=== PATIENT | male | born 1950 | race Caucasian/White ===

== ENCOUNTER 2020-06-24 07:56 | Outpatient (REF) | payer MEDICARE, SELFPAY ==
--- NOTE | ~2020-06-24 | XR_ITS ---
EXAMINATION: XR SHOULDER, LEFT CLINICAL INFORMATION: S46.912A - Strain of unspecified muscle, fascia and tendon COMPARISON: None TECHNIQUE: Left shoulder is imaged in 4 views. FINDINGS: There is no fracture, dislocation, destructive process. The acromioclavicular alignment is normal. There is small spur superior aspect greater tuberosity perhaps with punctate calcification distal rotator cuff. There is some punctate mineralization at the inferior glenoid rim. Mild spurring is present inferolateral acromium and distal inferior clavicle. There are degenerative changes acromioclavicular joint. No destructive process. XR/XR shoulder LT min 2V IMPRESSION: 1. No fracture or dislocation. Acromioclavicular alignment normal. 2. Degenerative changes acromioclavicular joint.
[2020-06-24 08:42] LABS: Hematocrit 43.2 % (42-52); Hemoglobin 14.3 g/dl (14.0-18.0); Mean Corpuscular HGB Conc 33.1 g/dl (31.0-36.0); Mean Corpuscular Hemoglobin 31.7 pg (27.0-33.0); Mean Corpuscular Volume 95.8 fL (80-98); Mean Platelet Volume 9.1 fL (9.4-12.4); Platelet Count 219 X10*3/uL (160-400); Red Blood Count 4.51 X10*6/uL (4.60-5.80); Red Cell Distribution Width 12.6 % (11.0-16.0); White Blood Count 6.1 X10*3/uL (4.8-10.8)
[2020-06-24 08:53] LABS: Glucose Urine UA NEG (NEG); Leukocyte Esterase Urine NEG (NEG); Nitrite Urine NEG (NEG); PH 7.5 (5.0-8.0); Specific Gravity - Urine 1.015 (1.005-1.025); Urine Blood NEG (NEG); Urine Ketones NEG (NEG); Urine Protein NEG (NEG-TRACE)
[2020-06-24 08:56] LABS: Appearance Urine CLEAR; Color Urine YELLOW
[2020-06-24 09:08] LABS: Alanine Aminotransferase 23 U/L (0-40); Albumin Level 4.2 g/dL (3.5-5.0); Alkaline Phosphatase 66 U/L (39-117); Aspartate Amino Transferase 28 U/L (5-37); Bilirubin Direct 0.2 mg/dL (0.0-0.5); Bilirubin Total 0.5 mg/dL (0.0-1.0); Blood Urea Nitrogen 16 mg/dL (9-16); Calcium 9.2 mg/dL (8.4-10.2); Cholesterol 186 mg/dL; Estimated Glomerular Filt Rate > 60; Glucose Random 97 mg/dL (60-115); HDL Cholesterol 93 mg/dL; LDL Cholesterol Calculated 84 mg/dl; Total Protein 6.8 g/dL (6.5-8.0); Triglycerides 48 mg/dL
[2020-06-24 09:16] LABS: Anion Gap 11 (12-20); Carbon Dioxide 29 mmol/L (22-29); Chloride 100 mmol/L (96-108); Potassium 3.7 mmol/L (3.3-5.1); Sodium 136 mmol/L (135-145)
== END 2020-06-24 07:57 | disposition home or self-care (01) ==
LOC: HO.LAB 07:56
PROVIDERS: PCP Internal Medicine; Visit Provider Internal Medicine
DX: S46.912A Strain of unspecified muscle, fascia and tendon at shoulder and upper arm level, left arm, initial encounter (principal); E78.00 Pure hypercholesterolemia, unspecified; X58.XXXA Exposure to other specified factors, initial encounter; Y93.9 Activity, unspecified; Y92.9 Unspecified place or not applicable; Y99.9 Unspecified external cause status
CPT/HCPCS: 36415; 73030; 80048; 80061; 80076; 81003; 85027

== ENCOUNTER 2021-04-01 11:03 | Outpatient (REF) | payer MEDICARE, SELFPAY ==
[2021-04-01 11:55] LABS: Hematocrit 41.9 % (42.0-52.0); Hemoglobin 13.9 g/dl (14.0-18.0); Mean Corpuscular HGB Conc 33.2 g/dl (31.0-36.0); Mean Corpuscular Hemoglobin 31.7 pg (27.0-33.0); Mean Corpuscular Volume 95.4 fL (80.0-98.0); Mean Platelet Volume 9.2 fL (9.4-12.4); Platelet Count 223 X10*3/uL (160-400); Red Blood Count 4.39 X10*6/uL (4.60-5.80); Red Cell Distribution Width 12.9 % (11.0-16.0); White Blood Count 6.5 X10*3/uL (4.8-10.8)
[2021-04-01 12:38] LABS: Thyroid Stimulating Hormone 1.22 uIU/mL (0.32-4.0)
[2021-04-01 12:46] LABS: Alanine Aminotransferase 19 U/L (0-40); Albumin Level 4.2 g/dL (3.5-5.0); Alkaline Phosphatase 61 U/L (39-117); Aspartate Amino Transferase 28 U/L (5-37); Bilirubin Direct 0.2 mg/dL (0.0-0.5); Bilirubin Total 0.5 mg/dL (0.0-1.0); C Reactive Protein 0.06 mg/dL (< or = 0.50); Cholesterol 195 mg/dL; HDL Cholesterol 85 mg/dL; LDL Cholesterol Calculated 90 mg/dl; Total Protein 6.9 g/dL (6.5-8.0); Triglycerides 103 mg/dL
[2021-04-01 12:49] LABS: Appearance Urine CLEAR; Color Urine YELLOW; Glucose Urine UA NEG (NEG); Leukocyte Esterase Urine NEG (NEG); Nitrite Urine NEG (NEG); Urine Blood NEG (NEG); Urine Ketones NEG (NEG); Urine Protein NEG (NEG-TRACE)
[2021-04-06 20:57] LABS: Vitamin D 25-OH, D2 <4 ng/mL; Vitamin D 25-OH, D3 13 ng/mL; Vitamin D 25-OH, Total 13 ng/mL (30-100)
== END 2021-04-01 11:04 | disposition home or self-care (01) ==
LOC: HO.LAB 11:03
PROVIDERS: PCP Internal Medicine; Visit Provider Internal Medicine
DX: E78.00 Pure hypercholesterolemia, unspecified (principal); S46.912A Strain of unspecified muscle, fascia and tendon at shoulder and upper arm level, left arm, initial encounter; X58.XXXA Exposure to other specified factors, initial encounter; Y93.9 Activity, unspecified; Y92.9 Unspecified place or not applicable; Y99.9 Unspecified external cause status
CPT/HCPCS: 36415; 80061; 80076; 81003; 82306; 84443; 85027; 86140

== ENCOUNTER 2021-04-29 10:49 | Outpatient (REF) | payer MEDICARE, SELFPAY ==
--- NOTE | ~2021-04-29 | XR_ITS ---
EXAMINATION: XR SHOULDER, RIGHT CLINICAL INFORMATION: Pain COMPARISON: Previous x-ray November 2016 TECHNIQUE: AP external rotation, Grashey, scapular Y, and axillary views of the right shoulder. FINDINGS: Bone alignment is normal. No acute fracture or dislocation is seen. There is arthritis at the acromioclavicular joint. There is a well-corticated soft tissue ossification superior to the distal clavicle that is unchanged. The glenohumeral joint is normal. Soft tissues are normal. XR/XR shoulder RT min 2V IMPRESSION: Arthritis at the acromioclavicular joint.
[2021-04-29 12:03] LABS: Rheumatoid Factor 35.7 IU/mL (<15.0)
[2021-05-03 09:31] LABS: Anti Nuclear Antibody Screen NEGATIVE (NEGATIVE)
== END 2021-04-29 10:50 | disposition home or self-care (01) ==
LOC: HO.LAB 10:49
PROVIDERS: PCP Internal Medicine; Visit Provider Nurse Practitioner Family
DX: R22.2 Localized swelling, mass and lump, trunk (principal); M25.50 Pain in unspecified joint; M25.511 Pain in right shoulder
CPT/HCPCS: 36415; 73030; 86038; 86039; 86431

== ENCOUNTER → 2021-07-04 08:09 | Outpatient (BNVA) | payer MEDICARE, SELFPAY | PROVIDERS: PCP Internal Medicine; Visit Provider Internal Medicine Rheumatology | DX: M19.041 Primary osteoarthritis, right hand (principal); M19.042 Primary osteoarthritis, left hand; M25.50 Pain in unspecified joint; R76.8 Other specified abnormal immunological findings in serum | CPT/HCPCS: 99202 ==

== ENCOUNTER 2021-07-12 09:53 | Outpatient (REF) | payer MEDICARE, SELFPAY ==
--- NOTE | ~2021-07-12 | XR_ITS ---
EXAMINATION: XR HAND, RIGHT CLINICAL INFORMATION: Primary osteoarthritis. COMPARISON: None TECHNIQUE: PA, lateral, and oblique views of the right hand. FINDINGS: Bony mineralization is normal. There is a neutral ulnar variance. There is mild osteoarthritic change of the interphalangeal joint of the thumb. There is minimal osteoarthritic change of the third distal interphalangeal joint. There is mild to moderate osteoarthritic change of the third through fifth proximal interphalangeal joints, most pronounced of the fifth, where there is apex lateral angulation. There are mild swan-neck deformities of the fingers. There is mild osteoarthritic change of the first through third metacarpophalangeal joints. There is severe osteoarthritic change of the first metacarpophalangeal joint. The proximal and distal carpal rows are intact. There are subchondral cystic degenerative changes of a few of the carpal bones. There is narrowing of the radiocarpal interval. No focal bone erosion is seen. There is no soft tissue gas or foreign body. XR/XR hand RT min 3V IMPRESSION: There are multi-focal osteoarthritic changes of the right hand and wrist. No focal bone erosion is seen. There is no fracture or dislocation noted. EXAMINATION: XR HAND, LEFT CLINICAL INFORMATION: Primary osteoarthritis. COMPARISON: None TECHNIQUE: PA, lateral, and oblique views of the left hand. FINDINGS: Bony mineralization is normal. There is a neutral ulnar variance. There is minimal osteoarthritic change of the second, third and fifth distal interphalangeal joints. There is mild osteoarthritic change of the fourth and fifth proximal interphalangeal joints. There is mild osteoarthritic change of the first, third and fourth metacarpophalangeal joints. There is marked osteoarthritic change of the first carpometacarpal joint. The proximal and distal carpal rows are intact. There is narrowing of the radiocarpal interval. No focal bone erosion is seen. There is no soft tissue gas or foreign body. IMPRESSION: As with the contralateral side, there are multi-focal osteolytic changes of the left hand and wrist. No focal bone erosion is seen. There is no fracture or dislocation.
--- NOTE | ~2021-07-12 | XR_ITS ---
EXAMINATION: XR FOOT, RIGHT CLINICAL INFORMATION: Pain. COMPARISON: None TECHNIQUE: AP, lateral, and oblique views of the right foot. FINDINGS: Bony alignment and mineralization are normal. No fracture, dislocation or right ankle joint effusion is seen. There is mild spurring of the dorsal aspect of the talonavicular joint. Boehler's angle is normal. There are small to moderate posterior and minimal plantar calcaneal spurs. There is moderate osteoarthritic change of the first metatarsophalangeal joint. There is mild bunion formation of the first metatarsal head. There is no abnormal bone erosion. No soft tissue gas or foreign body is seen. XR/XR foot LT min 3V IMPRESSION: 1. No fracture, dislocation or right joint effusion is seen. 2. There are calcaneal spurs, as detailed. 3. There is moderate osteoarthritic change of the right first metatarsophalangeal joint. 4. There is mild bunion formation of the right first metatarsal head. EXAMINATION: XR FOOT, LEFT CLINICAL INFORMATION: Pain. COMPARISON: None TECHNIQUE: AP, lateral, and oblique views of the left foot. FINDINGS: Bony alignment and mineralization are normal. No fracture, dislocation or left ankle joint effusion is seen. Boehler's angle is normal. There are small posterior and minimal plantar calcaneal spurs. There is mild spurring at the dorsal aspect of the talonavicular joint. There is marked osteoarthritic change of the first metatarsophalangeal joint. There is a moderate hallux valgus configuration. There is a large bunion seen at the medial aspect of the left first metatarsal head. No abnormal bone erosion is seen. There is no soft tissue gas or foreign body. IMPRESSION: 1. No fracture, dislocation or left ankle joint effusion is seen. 2. There are calcaneal spurs, as detailed. 3. There is marked osteoarthritic change of the left first metatarsophalangeal joint, with hallux valgus configuration. 4. There is a large bunion of the left first metatarsal head.
[2021-07-12 11:05] LABS: C Reactive Protein 0.07 mg/dL (< or = 0.50)
[2021-07-12 11:23] LABS: HBS Num1 0.94 mIU/mL (0-7.99); HBc Num1 0.04 S/CO (0.00-0.79); HBsAGNum1 0.22 S/CO (0.00-0.99); Hepatitis B Core Antibody Nonreactive (Nonreactive); Hepatitis B Surface Antigen Negative (Negative); ~HepC Num1 0.11 S/CO (0.00-0.79); ~Hepatitis B Surface Antibody NONREACTIVE (Nonreactive); ~Hepatitis C Antibody Nonreactive (Nonreactive)
[2021-07-12 11:26] LABS: Erythrocyte Sedimentation Rate 3 MM/HR (0-15)
[2021-07-13 09:27] LABS: ~Hepatitis A Antibody IgM Nonreactive (Nonreactive)
== END 2021-07-12 09:54 | disposition home or self-care (01) ==
LOC: HO.XRAY 09:53
PROVIDERS: PCP Internal Medicine; Visit Provider Internal Medicine Rheumatology
DX: M19.041 Primary osteoarthritis, right hand (principal); M19.042 Primary osteoarthritis, left hand; M79.671 Pain in right foot; M79.672 Pain in left foot; E76.8 Other disorders of glucosaminoglycan metabolism
CPT/HCPCS: 36415; 73130; 73630; 85652; 86140; 86704; 86706; 86709; 86803; 87340

== ENCOUNTER 2023-01-17 10:49 | Outpatient (AMB) | payer MEDICARE, SELFPAY ==
--- NOTE | 2023-01-17 11:10 | MHC.OFFWIV ---
Intake Vital Signs 01/17/23 11:12 Height 5 ft 7 in Weight 131 lb BMI 20.5 BP 130/72 Blood Pressure Location Rt brachial Position Sitting Pulse 71 Pulse Source Pulse Oximeter Temp 97.7 F Pulse Oximetry (%) 97 Oxygen Delivery Method Room Air Intake Visit Reasons: EP cough congestion [id number] Intake Note: pt is here today for cough congestion started 2 weeks ago Patient Tobacco Use Status: Never used Tobacco Allergies No Known Allergies [No Known Allergies*] Allergy (Verified 01/17/23 11:20) Medication List - Last Reconciled 01[facility]17/23 [facility] No Known Home Meds Do you need a note to return to daycare/school/sports/work: No HPI HPI Comments History of Present Illness Details here today w cough and chest congestion that started ~ 2 weeks ago. Lots of , phlegm,mild nasal drainage Home covid test negative denies fever, chills, ear pain, sore throat, chest pain, sob, swelling in legs, recent travel. tried mucinex w/o relief + salt h20 rinses PFSH Medical History Hypercholesterolemia Left shoulder strain Osteoarthritis of hands, bilateral Shooting pain Tendonitis of both rotator cuffs Surgical History History of brain surgery History of hernia repair Family History Mother No problems noted. Father No problems noted. Social History Housing: House Alcohol intake: current Alcohol intake frequency: holidays/special occasions only Patient Tobacco Use Status: Never used Tobacco e-Cigarette/Vaping Use: Never Used Second Hand Smoke Exposure: No service: No Current occupational status: employed and retired Cognitive needs: No Hearing needs: No Vision needs: No Review of Systems Const All systems reviewed & are unremarkable except as noted in HPI and below Physical Exam Vital Signs: Last Vital Signs Temp 97.7 F 01/17/23 11:12 Pulse 71 01/17/23 11:12 BP 130/72 01/17/23 11:12 Pulse Ox 97 12/06/23 11:12 Oxygen Delivery Method Room Air 01/17/23 11:12 BMI result Body Mass Index 20.5 Const Other: awake alert NAD sclera & conjunctiva clear bilat TM intat, bulging with mild erythema and loss of landmarks R>L Nares and turbinates clear bilat, no sinus tenderness to palp Pharynx clear RRR Faint exp wheeze RUL, otherwise CTAB. Mild cough w/o distress noted during exam Assessment & Plan Assessment & Plan (1) Cough: Code(s): R05.9 - Cough, unspecified Qualifiers: Cough type: acute Qualified Code(s): R05.1 - Acute cough (2) Wheezing: Code(s): R06.2 - Wheezing Plan: plan for CXR today, if + for infectious process aB to be called in as appropriate. If CXR negative, recommend RX for steroids. He will be called w/ results when they are available. Plan . Orders: Orders XR chest 2V Today R05.9 - Cough, unspecified, R06.2 - Wheezing Coding Level of Care Code Est Pt Level 3 (45193) Diagnoses Acute cough R05.1 Cough type: acute Wheezing R06.2
[2023-01-17 11:12] VITALS: BP 130/72; PULSE 71; TEMP 36.5; O2SAT 97; BMI 20.5
== END 2023-01-17 11:31 | disposition home or self-care (01) ==
PROVIDERS: PCP Internal Medicine; Visit Provider Nurse Practitioner Family
DX: R05.1 Acute cough (principal); R06.2 Wheezing
CPT/HCPCS: 99213

== ENCOUNTER 2023-01-17 11:33 | Outpatient (REF) | payer MEDICARE, SELFPAY ==
--- NOTE | ~2023-01-17 | XR_ITS ---
EXAMINATION: XR CHEST CLINICAL INFORMATION: Wheezing COMPARISON: None available. TECHNIQUE: 2 views of the chest were obtained. FINDINGS: Lungs are clear, hyperinflated cardiomediastinal silhouette revealed tortuosity of the aorta. There is no evidence of nodules infiltrates or pleural effusion. XR/XR chest 2V IMPRESSION: Mild emphysematous changes
== END 2023-01-17 11:34 | disposition home or self-care (01) ==
LOC: HO.HMGCX 11:33
PROVIDERS: Visit Provider Nurse Practitioner Family
DX: R06.2 Wheezing (principal); R05.9 Cough, unspecified
CPT/HCPCS: 71046

== ENCOUNTER 2023-05-17 15:32 | Outpatient (AMB) | payer MEDICARE, SELFPAY ==
--- NOTE | 2023-05-17 16:05 | MHC.PC.OV ---
Vital Signs 05/17/23 16:06 Height 5 ft 7 in Weight 132 lb 2 oz BMI 20.7 BP 142/80 H Blood Pressure Location Lt brachial Position Sitting Pulse 65 Pulse Source Pulse Oximeter Pulse Oximetry (%) 96 Oxygen Delivery Method Room Air Intake Visit Reasons: Physical Exam Intake Note: Patient is here today for a physical. Rheumatology Specialist Required: No K 9 Police Officer: Not Required per policy Accompanied by: Self / Same As Patient Allergies No Known Allergies [No Known Allergies*] Allergy (Verified 05/18/23 14:07) Tobacco use date assessed: 05/17/23 Fall risk assessment: No Falls in past year Last assessed Fall Risk: 05/17/23 Dental Screening Dental Screen Date: 05/17/23 Did you have a dental visit in the last 12 months?: No Did you have a dental problem in the last 6 months where you did not have access to dental care?: No Was dental information given to patient?: No HPI Physical Exam HPI Details 73-year-old male presents to the office for an annual physical exam. Patient is reporting that his arthritis is getting worse. He has a large swelling at the right thumb, elbow and on the foot. Meloxicam helps but he has not been taking the medication for the past month. He ran out of the medications. Complains of morning stiffness. 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 Also did not get the Cologuard test. [facility] Medical History Tendonitis of both rotator cuffs Shooting pain Osteoarthritis of hands, bilateral Left shoulder strain Hypercholesterolemia Surgical History History of brain surgery History of hernia repair Family History Mother No problems noted. Father No problems noted. Social History Housing: House Alcohol intake: current Alcohol intake frequency: holidays/special occasions only Patient Tobacco Use Status: Never used Tobacco e-Cigarette/Vaping Use: Never Used Second Hand Smoke Exposure: No service: No Current occupational status: employed and retired Cognitive needs: No Hearing needs: No Vision needs: No Questionnaire PHQ-9 Over the last 2 weeks, how often have you been bothered by any of the following problems? 1. Little interest or pleasure in doing things: not at all 2. Feeling down, depressed, or hopeless: not at all 3. Trouble falling or staying asleep, or sleeping too much: not at all 4. Feeling tired or having little energy: not at all 5. Poor appetite or overeating: not at all 6. Feeling bad about yourself - or that you are a failure or have let yourself or your family down: not at all 7. Trouble concentrating on things, such as reading the newspaper or watching television: not at all 8. Moving or speaking so slowly that other people could have noticed. Or the opposite - being so fidgety or restless that you have been moving around a lot more than usual: not at all 9. Thoughts that you would be better off or of hurting yourself in some way: not at all Total score: 0 Depression Screening Interpretation: Negative Depression Screening Done: Yes Source: Developed by Drs. Carlos Doty, Shweta Arechiga, Mario Hernandez and colleagues, with an educational claribel from [employer]. Thrive Questionnaire Date Thrive assessed: 05/17/23 I am a: Patient What is your living situation today?: I have a steady place to live Within the past 12 months, did the food you bought not last and you didn't have the money to get more?: Never true Within the past 12 months, did you worry whether your food would run out before you got money to buy more?: Never true Do you have trouble paying for medicines?: No Do you have trouble getting transportation to medical appointments?: No Do you have trouble paying your heating and electricity bill?: No Do you have trouble taking care of your child, family member or friend?: No Do you have trouble with day-to-day activities such as bathing, preparing meals, shopping, managing finances, etc.?: No Are you currently unemployed and looking for a job?: No Are you interested in more education?: No Currently or been in a relationship where the following occur: no concerns reported THRIVE Score: 0 AUDIT C Alcohol Use Questionnaire (AUDIT-C) 1. How often do you have a drink containing alcohol?: Monthly or less 2. How many drinks containing alcohol do you have on a typical day when you are drinking?: 1 or 2 Total Score: 1 ALYCE-7 AMB Questionnaire ALYCE-7 Date ALYCE - 7 assessed: 05/17/23 Feeling nervous, anxious, or on edge: 0 = Not at all Not being able to stop or control worryin = Not at all Worrying too much about different things: 0 = Not at all Trouble relaxin = Not at all Being so restless that it is hard to sit still: 0 = Not at all Becoming easily annoyed or irritable: 0 = Not at all Feeling afraid as if something awful might happen: 0 = Not at all Total ALYCE-7 score (0-4 normal; 5-9 mild; 10-14 moderate; 15-21 severe): 0 Source: Developed by Drs. Carlos Doty, Shweta Arechiga, Mario Hernandez and colleagues, with an educational claribel from [employer]. Physical exam (Primary Care) Vital Signs: Last Vital Signs Pulse 65 05/17/23 16:06 BP 142/80 H 05/17/23 16:06 Pulse Ox 96 05/17/23 16:06 Oxygen Delivery Method Room Air 05/17/23 16:06 Care Plan Goal for BP management: Elevated systolic blood pressure noted. Patient was advised to check his blood pressures at home. BMI result Body Mass Index 20.7 Tobacco/Smoking Status: Tobacco use Status Tobacco use date assessed 05/17/23 05/17/23 16:10 Patient Tobacco Use Status Never used Tobacco 05/17/23 16:10 e-Cigarette/Vaping Use Never Used 05/17/23 16:10 PHQ-9: PHQ-9 Score PHQ-9: Total score 0 05/17/23 16:10 Depression Screening Interpretation: Negative Thrive Assessment: Date of Thrive Assessment Date Thrive assessed 05/17/23 05/17/23 16:10 Currently or been in a relationship where the following occur: no concerns reported Advance Care Planning discussion: Exists, not on file Date of discussion: 05/17/23 Who was present: Patient Forms completed: Health Care Proxy and MOLST Const General: cooperative and healthy appearing Nutritional Appearance: well nourished Orientation/consciousness: patient oriented x3 Limitations: no limitations HENMT Head: Yes normal to inspection Eyes General: appearance normal, both eyes and all related structures Neck Neck: Yes normal visual inspection Chest Chest palpation & inspection: normal palpation of entire chest wall Resp Effort & Inspection: normal respiratory effort Neuro General: patient oriented x3 Extrem Other: Large heart and swelling at the lateral edge of the elbow, at the base of the MCP joint and the base of the MTP joint on the foot. Assessment and Plan Assessment & Plan (1) Osteoarthritis of hands, bilateral: Code(s): M19.041 - Primary osteoarthritis, right hand; M19.042 - Primary osteoarthritis, left hand Plan: Rheumatology consult will be requested again. 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 Blood work will be ordered. (2) Hydrocephalus associated with congenital aqueduct stenosis: Code(s): Q03.0 - Malformations of aqueduct of [place] Plan: This condition is stable. (3) Annual physical exam: Code(s): Z00.00 - Encounter for general adult medical examination without abnormal findings Plan: Blood pressure is slightly elevated. Patient was advised to monitor blood pressures at home. Cologuard test has been ordered again. (4) Hypercholesterolemia: Code(s): E78.00 - Pure hypercholesterolemia, unspecified Orders: Orders Basic Metabolic Panel Today E78.00 - Pure hypercholesterolemia, unspecified, M19.041 - Primary osteoarthritis, right hand, M19.042 - Primary osteoarthritis, left hand, Q03.0 - Malformations of aqueduct of [place] UA and rflx microscopic Today E78.00 - Pure hypercholesterolemia, unspecified, M19.041 - Primary osteoarthritis, right hand, M19.042 - Primary osteoarthritis, left hand, Q03.0 - Malformations of aqueduct of [place] Complete Blood Count no Diff Today E78.00 - Pure hypercholesterolemia, unspecified, M19.041 - Primary osteoarthritis, right hand, M19.042 - Primary osteoarthritis, left hand, Q03.0 - Malformations of aqueduct of [place] Liver Panel Today E78.00 - Pure hypercholesterolemia, unspecified, M19.041 - Primary osteoarthritis, right hand, M19.042 - Primary osteoarthritis, left hand, Q03.0 - Malformations of aqueduct of [place] Thyroid Stimulating Hormone Today E78.00 - Pure hypercholesterolemia, unspecified, M19.041 - Primary osteoarthritis, right hand, M19.042 - Primary osteoarthritis, left hand, Q03.0 - Malformations of aqueduct of [place] Erythrocyte Sedimentation Rate Today E78.00 - Pure hypercholesterolemia, unspecified, M19.041 - Primary osteoarthritis, right hand, M19.042 - Primary osteoarthritis, left hand, Q03.0 - Malformations of aqueduct of [place] Referrals Rheumatology Referral M19.041 - Primary osteoarthritis, right hand, M19.042 - Primary osteoarthritis, left hand Medications: New meloxicam 15 mg PO DAILY 30 tabs 1RF Coding Level of Care Code Tele Est Pt Level 4 (47127) Diagnoses Osteoarthritis of hands, bilateral M19.041; M19.042 Hydrocephalus associated with congenital aqueduct stenosis Q03.0 Annual physical exam Z00.00 Hypercholesterolemia E78.00 Additional Codes Vital Signs *Quality* - Advance Care Planning discussion: Exists, not on file ([id number])
[2023-05-17 16:06] VITALS: BP 142/80; PULSE 65; O2SAT 96; BMI 20.7
== END 2023-05-17 16:43 | disposition home or self-care (01) ==
PROVIDERS: PCP Internal Medicine; Visit Provider Internal Medicine
DX: M19.041 Primary osteoarthritis, right hand (principal); M19.042 Primary osteoarthritis, left hand; Q03.0 Malformations of aqueduct of Sylvius; E78.00 Pure hypercholesterolemia, unspecified
CPT/HCPCS: 1123F; 99214

== ENCOUNTER 2023-05-28 14:16 | Outpatient (REF) | payer MEDICARE, SELFPAY ==
[2023-05-28 14:55] LABS: Hematocrit 39.8 % (42.0-52.0); Hemoglobin 13.3 g/dl (14.0-18.0); Mean Corpuscular HGB Conc 33.4 g/dl (31.0-36.0); Mean Corpuscular Hemoglobin 31.7 pg (27.0-33.0); Mean Corpuscular Volume 94.8 fL (80.0-98.0); Mean Platelet Volume 9.3 fL (9.4-12.4); Platelet Count 206 X10*3/uL (160-400); Red Cell Distribution Width 13.2 % (11.0-16.0); White Blood Count 7.9 X10*3/uL (4.8-10.8)
[2023-05-28 14:57] LABS: Appearance Urine Clear; Color Urine Yellow; Glucose Urine UA Negative (Negative); Leukocyte Esterase Urine Negative (Negative); Nitrite Urine Negative (Negative); Urine Blood Negative (Negative); Urine Ketones Negative (Negative); Urine Protein Trace mg/dL (Neg-Trace)
[2023-05-28 15:33] LABS: Erythrocyte Sedimentation Rate 5 MM/HR (0-15)
[2023-05-28 15:41] LABS: Alanine Aminotransferase 22 U/L (0-40); Albumin Level 4.1 g/dL (3.5-5.0); Alkaline Phosphatase 55 U/L (39-117); Anion Gap 10 (12-20); Aspartate Amino Transferase 29 U/L (5-37); Bilirubin Direct 0.1 mg/dL (0.0-0.5); Bilirubin Total 0.4 mg/dL (0.0-1.0); Blood Urea Nitrogen 23 mg/dL (9-16); Calcium 9.3 mg/dL (8.4-10.2); Carbon Dioxide 28 mmol/L (22-29); Chloride 104 mmol/L (96-108); Estimated Glomerular Filt Rate 56; Glucose Random 84 mg/dL (60-115); Potassium 4.2 mmol/L (3.3-5.1); Sodium 138 mmol/L (135-145)
[2023-05-28 15:56] LABS: Thyroid Stimulating Hormone 1.26 uIU/mL (0.32-4.0)
== END 2023-05-28 14:17 | disposition home or self-care (01) ==
LOC: HO.LAB 14:16
PROVIDERS: PCP Internal Medicine; Visit Provider Internal Medicine
DX: M19.041 Primary osteoarthritis, right hand (principal); M19.042 Primary osteoarthritis, left hand; Q03.0 Malformations of aqueduct of Sylvius; E78.00 Pure hypercholesterolemia, unspecified
CPT/HCPCS: 36415; 80048; 80076; 81003; 84443; 85027; 85652

== ENCOUNTER 2023-08-29 15:12 | Outpatient (AMB) | payer MEDICARE, SELFPAY ==
--- NOTE | 2023-08-29 15:32 | A.OFFPC_ITS ---
Vital Signs 08/29/23 15:37 Height 5 ft 7 in Weight 132 lb 6 oz BMI 20.7 BP 120/76 Blood Pressure Location Lt brachial Position Sitting Pulse 63 Pulse Source Pulse Oximeter Pulse Oximetry (%) 97 Oxygen Delivery Method Room Air Intake Visit Reasons: 3mth f/u Intake Note: Patient is here to follow up on Hypercholesterolemia, Polyarthralgia. Requesting for Cologuard test Superintendent Transportation Required: No Business Systems Analyst: Not Required per policy Accompanied by: Self / Same As Patient Allergies No Known Allergies [No Known Allergies*] Allergy (Verified 09/03/23 10:52) Medication List - Last Reconciled 09/03/23 by Anand Roblero MD losartan 50 mg PO DAILY meloxicam 15 mg PO DAILY Tobacco use date assessed: 08/29/23 Fall risk assessment: No Falls in past year Last assessed Fall Risk: 08/29/23 Dental Screening Dental Screen Date: 05/17/23 HPI 3mth f/u HPI Details 73-year-old male presents to the office to discuss his chronic medical condition. Patient has not had the Cologuard test. It was ordered previously but he did not get anything in the mail. He is also not seen the lean process deployment consultant despite an appointment being scheduled. He did not hear anything from their office. Continues to have pain in the right foot and knee. Would like a refill on his meloxicam. Compliant with other medications and able to do all activities of daily living. Patient reports symptoms of morning stiffness and nonspecific joint pains. Able to function and do activities of daily living. [facility] Medical History Tendonitis of both rotator cuffs Shooting pain Osteoarthritis of hands, bilateral Left shoulder strain Hypercholesterolemia Surgical History History of brain surgery History of hernia repair Family History Mother No problems noted. Father No problems noted. Social History Housing: House Alcohol intake: current Alcohol intake frequency: holidays/special occasions only Patient Tobacco Use Status: Never used Tobacco e-Cigarette/Vaping Use: Never Used Second Hand Smoke Exposure: No service: No Current occupational status: employed and retired Cognitive needs: No Hearing needs: No Vision needs: No Questionnaire Thrive Questionnaire Date Thrive assessed: 05/17/23 ALYCE-7 AMB Questionnaire ALYCE-7 Date ALYCE - 7 assessed: 05/17/23 Source: Developed by Drs. Carlos Doty, Shweta Arechiga, Mario Hernandez and colleagues, with an educational claribel from [employer]. Physical exam (Primary Care) Vital Signs: Last Vital Signs Pulse 63 08/29/23 15:37 BP 120/76 08/29/23 15:37 Pulse Ox 97 08/29/23 15:37 Oxygen Delivery Method Room Air 08/29/23 15:37 BMI result Body Mass Index 20.7 Tobacco/Smoking Status: Tobacco use Status Tobacco use date assessed 08/29/23 08/29/23 15:46 Patient Tobacco Use Status Never used Tobacco 08/29/23 15:34 e-Cigarette/Vaping Use Never Used 08/29/23 15:34 Thrive Assessment: Date of Thrive Assessment Date Thrive assessed 05/17/23 08/29/23 15:34 Const General: cooperative and healthy appearing Nutritional Appearance: well nourished Orientation/consciousness: patient oriented x3 Limitations: no limitations HENMT Head: Yes normal to inspection Eyes General: appearance normal, both eyes and all related structures Neck Neck: Yes normal visual inspection Chest Chest palpation & inspection: normal palpation of entire chest wall Resp Effort & Inspection: normal respiratory effort Neuro General: patient oriented x3 Assessment and Plan Assessment & Plan (1) Osteoarthritis of hands, bilateral: Code(s): M19.041 - Primary osteoarthritis, right hand; M19.042 - Primary osteoarthritis, left hand Plan: Patient is positive for rheumatoid arthritis. A rheumatology consult has been requested to see if he is a candidate for any disease modifying agents. The referral was made again. Meloxicam has been called in. (2) Hypercholesterolemia: Code(s): E78.00 - Pure hypercholesterolemia, unspecified Plan: Blood work reviewed. A Cologuard has been ordered again in lieu of the screening colonoscopy. Orders: Referrals Cologuard Test Z12.11 - Encounter for screening for malignant neoplasm of colon, Z12.12 - Encounter for screening for malignant neoplasm of rectum Medications: Refilled meloxicam 15 mg PO DAILY 90 tabs 1RF Coding Level of Care Code Est Pt Level 4 (78834) Complex EM visit Add On G2211 Diagnoses Osteoarthritis of hands, bilateral M19.041; M19.042 Hypercholesterolemia E78.00
[2023-08-29 15:37] VITALS: BP 120/76; PULSE 63; O2SAT 97; BMI 20.7
== END 2023-08-29 16:18 | disposition home or self-care (01) ==
PROVIDERS: PCP Internal Medicine; Visit Provider Internal Medicine
DX: M19.041 Primary osteoarthritis, right hand (principal); M19.042 Primary osteoarthritis, left hand; E78.00 Pure hypercholesterolemia, unspecified
CPT/HCPCS: 99214; G2211

== ENCOUNTER 2023-09-14 14:32 | Outpatient (AMB) | payer MEDICARE, SELFPAY ==
[2023-09-14 14:43] VITALS: BP 118/72; PULSE 61; O2SAT 98; BMI 20.8
--- NOTE | 2023-09-14 14:43 | MHC.OFFVIS ---
Vital Signs 09/14/23 14:43 Height 5 ft 7 in Weight 132 lb 11.492 oz BMI 20.8 BP 118/72 Blood Pressure Location Lt brachial Position Sitting Pulse 61 Pulse Source Pulse Oximeter Pulse Oximetry (%) 98 Oxygen Delivery Method Room Air Intake Visit Reasons: Joint Pain/CM Intake Note: Patient is here for joint pain, particularly in feet, but all over his body. Allergies No Known Allergies [No Known Allergies*] Allergy (Verified 09/03/23 10:52) Medication List - Last Reconciled 09/14/23 by Katty Slater MD losartan 50 mg PO DAILY meloxicam 15 mg PO DAILY HPI Comments Details: This is a 73-year-old male with arthritis who presents for follow-up. He was last seen by Dr. Avalos about 2 years ago. States that since then he has been taking meloxicam 15 mg daily in the morning. States that he continues to have pain and stiffness of his hands, knees, shoulders. Morning stiffness lasts 1 hour, gets intermittent swelling of his knuckles. 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 He has noticed some deformity of his thumbs, they are moving inside his hand. He is certain that patient's mother had rheumatoid arthritis Most recent history by Dr. Avalos 2021: The patient presents for evaluation of shoulder pain, wrist pain and a positive rheumatoid factor. For few years he has been having some aching in the wrists, usually after heavier physical activity. He had a fall on the right shoulder in early 2020. This was treated with some meloxicam and did improve for a while but then worsened again this fall. He also developed left shoulder pain this fall. The left shoulder now hurts more than the right. Symptoms are worse with lying on the shoulders at night. He notes decreased range of motion in the left shoulder. 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 He also runs a [employer] part-time. [facility] Medical History Tendonitis of both rotator cuffs Shooting pain Osteoarthritis of hands, bilateral Left shoulder strain Hypercholesterolemia Surgical History History of brain surgery History of hernia repair Family History Mother No problems noted. Father No problems noted. Social History Housing: House Alcohol intake: current Alcohol intake frequency: holidays/special occasions only Patient Tobacco Use Status: Never used Tobacco e-Cigarette/Vaping Use: Never Used Second Hand Smoke Exposure: No service: No Current occupational status: employed and retired Cognitive needs: No Hearing needs: No Vision needs: No Review of Systems Musc Reports deformity, Reports arthralgias, Reports joint swelling, Reports limited range of motion and Reports stiffness Physical Exam Vital Signs: Last Vital Signs Pulse 61 09/14/23 14:43 BP 118/72 09/14/23 14:43 Pulse Ox 98 09/14/23 14:43 Oxygen Delivery Method Room Air 09/14/23 14:43 BMI result Body Mass Index 20.8 Const General: cooperative, healthy appearing and comfortable Nutritional Appearance: average body habitus Orientation/consciousness: patient oriented x3 Limitations: no limitations HEENT Head: Yes normocephalic and Yes atraumatic Mouth: moist mucous membranes Resp Effort & Inspection: normal respiratory effort and able to speak in complete sentences Auscultation: clear to auscultation bilaterally Cardio Rate: regular rate Rhythm: regular rhythm Skin General skin exam: no rashes or lesions noted Neuro General: patient oriented x3 Extrem Other: No wrist tenderness or swelling bilaterally Bilateral limited wrist flexion and extension Puffiness of right 2nd and 3rd MCPs [place]-neck deformity of right 3rd finger Deformity of thumbs bilaterally [place]-neck deformity of left middle finger 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 Patient continues to have daily morning stiffness lasting 1 hour, takes meloxicam 15 mg consistently daily On exam today patient has some deformities and few swollen joints that are suggestive of rheumatoid arthritis. I will repeat his x-rays, check his inflammatory markers Start prednisone therapeutic trial. Advised patient to hold meloxicam while taking prednisone Follow-up in 6 weeks Plan I spent 30 minutes reviewing patient's chart, evaluating patient, ordering diagnostic workup, counseling patient and documenting in the chart Orders: Orders Complete Blood Count Auto Diff Today M06.9 - Rheumatoid arthritis, unspecified Comprehensive Met. Panel Today M06.9 - Rheumatoid arthritis, unspecified Erythrocyte Sedimentation Rate Today M06.9 - Rheumatoid arthritis, unspecified Protein Electrophoresis, Serum Today M06.9 - Rheumatoid arthritis, unspecified T Spot TB Today Z11.7 - Encounter for testing for latent tuberculosis infection XR ankle RT min 3V Today M06.9 - Rheumatoid arthritis, unspecified XR hand wrist RT Today M06.9 - Rheumatoid arthritis, unspecified C Reactive Protein Today M06.9 - Rheumatoid arthritis, unspecified Hepatitis A,B,C Profile Today Z11.59 - Encounter for screening for other viral diseases Immunofixation Pnl, Serum Today M06.9 - Rheumatoid arthritis, unspecified XR ankle LT min 3V Today M06.9 - Rheumatoid arthritis, unspecified XR hand wrist LT Today M06.9 - Rheumatoid arthritis, unspecified XR foot LT min 3V Today M06.9 - Rheumatoid arthritis, unspecified XR foot RT min 3V Today M06.9 - Rheumatoid arthritis, unspecified Medications: New prednisone Take 4 tabs daily for 1 week then 3 tabs daily for 1 week then 2 tabs daily for 1 week then 1 tab daily for 1 week then stop 70 tabs 0RF Coding Level of Care Code Est Pt Level 4 (10289) Diagnoses Rheumatoid factor positive R76.8
== END 2023-09-14 15:37 | disposition home or self-care (01) ==
PROVIDERS: PCP Internal Medicine; Visit Provider Student in an Organized Health Care Education/Training Program
DX: R76.8 Other specified abnormal immunological findings in serum (principal)
CPT/HCPCS: 99214

== ENCOUNTER 2023-09-14 14:32 | Outpatient (REF) | payer MEDICARE, SELFPAY ==
--- NOTE | ~2023-09-14 | XR_ITS ---
EXAMINATION: XR HAND/WRIST, RIGHT XR HAND/WRIST, LEFT CLINICAL INFORMATION: Rheumatoid arthritis. COMPARISON: Prior radiographs dated 07/12/2021. TECHNIQUE: PA, lateral, and oblique views of the each hand and wrist. FINDINGS: RIGHT HAND/WRIST: Bony mineralization is normal. There is a neutral ulnar variance. There is moderate osteoarthritic change of the interphalangeal joint of the thumb. There is mild osteoarthritic change of the third and fourth proximal interphalangeal joints, and there is marked osteoarthritic change of the fifth distal interphalangeal joint, with lateral subluxation and peripheral osteophyte formation. There is moderately severe osteoarthritic change of the first through third metacarpophalangeal joints. There is marked osteoarthritic change of the first carpometacarpal joint. The proximal distal carpal rows are intact. There is narrowing of the radiocarpal interval. No fracture or dislocation is seen. There is no focal bone erosion. No foreign body is noted. LEFT HAND/WRIST: Bony mineralization is normal. There is a neutral ulnar variance. There is mild osteoarthritic change of the interphalangeal joint of the thumb. There is mild osteoarthritic change of the proximal and distal interphalangeal joints of the third finger, the proximal interphalangeal joint of the fourth finger and the proximal and distal interphalangeal joints of the fifth finger. There is mild medial subluxation at the fourth and fifth proximal interphalangeal joints. There is mild osteoarthritic change of the first through fourth metacarpophalangeal joints. There is marked osteoarthritic change of the first carpometacarpal and radiocarpal joints. The proximal and distal carpal rows are intact. No fracture or dislocation is seen. No focal erosion is noted. There is no focal soft tissue swelling, gas or foreign body. XR/XR hand wrist LT IMPRESSION: There are again multi-focal osteoarthritic changes of the bilateral hands and wrists. There are subluxations noted, as detailed. No bone erosion is seen. There is no fracture or dislocation. Electronically signed by: Lucas Espinoza MD 10/11/2023 04:43 PM EDT Workstation: [id number]
--- NOTE | ~2023-09-14 | XR_ITS ---
EXAMINATION: XR ANKLE, LEFT XR FOOT, LEFT CLINICAL INFORMATION: Rheumatoid arthritis. COMPARISON: Radiograph dated 07/13/2021. TECHNIQUE: AP, lateral, and mortise views of the left ankle. AP, lateral, and oblique views of the left foot. FINDINGS: Bony mineralization is normal. The ankle mortise is intact. There is a metatarsus adductus and hallux valgus configuration. No fracture, dislocation or left ankle joint effusion is seen. As with the contralateral side, there is an accessory ossification center of the navicular. Boehler's angle is normal. There are small posterior and very small plantar calcaneal spurs. There is marked osteoarthritic change of the first metatarsophalangeal joint. There is mild bunion formation the first metatarsal head. No abnormal bone erosion is seen. There is no focal soft tissue swelling, gas or foreign body. XR/XR ankle LT min 3V IMPRESSION: 1. No fracture, dislocation or left ankle joint effusion is seen. 2. There is marked osteoarthritic change of the left first metatarsophalangeal joint, with bunion formation. 4. There are calcaneal spurs. 3. No focal bone erosion is noted. Electronically signed by: Lucas Espinoza MD 10/11/2023 09:51 AM EDT
--- NOTE | ~2023-09-14 | XR_ITS ---
EXAMINATION: XR ANKLE, RIGHT XR FOOT, RIGHT CLINICAL INFORMATION: Rheumatoid arthritis. COMPARISON: Radiographs dated 07/12/2021. TECHNIQUE: AP, lateral, and mortise views of the right ankle. AP, lateral, and oblique views of the right foot. FINDINGS: Bony alignment and mineralization are normal. The ankle mortise is intact. No fracture, dislocation or right ankle joint effusion is seen. Boehler's angle is normal. There are large posterior and small plantar calcaneal spurs. There are degenerative changes of the dorsal midfoot. There is an accessory ossification center of the navicular bone. There is moderate osteoarthritic change of the first metatarsophalangeal joint, with geode formation. A mild blunting is seen of the first metatarsal head. No abnormal bone erosion is noted. There is soft tissue swelling medial to the interphalangeal joint of the great toe. No foreign body is seen. XR/XR ankle RT min 3V IMPRESSION: 1. No fracture, dislocation or right ankle joint effusion is seen. 2. There are calcaneal spurs, as detailed. 3. There is moderate osteoarthritic change of the right first metatarsophalangeal joint. There is mild bunion formation. 4. There is no focal bone erosion. Electronically signed by: Lucas Espinoza MD 10/11/2023 09:47 AM EDT
--- NOTE | ~2023-09-14 | XR_ITS ---
EXAMINATION: XR ANKLE, RIGHT XR FOOT, RIGHT CLINICAL INFORMATION: Rheumatoid arthritis. COMPARISON: Radiographs dated 07/12/2021. TECHNIQUE: AP, lateral, and mortise views of the right ankle. AP, lateral, and oblique views of the right foot. FINDINGS: Bony alignment and mineralization are normal. The ankle mortise is intact. No fracture, dislocation or right ankle joint effusion is seen. Boehler's angle is normal. There are large posterior and small plantar calcaneal spurs. There are degenerative changes of the dorsal midfoot. There is an accessory ossification center of the navicular bone. There is moderate osteoarthritic change of the first metatarsophalangeal joint, with geode formation. A mild blunting is seen of the first metatarsal head. No abnormal bone erosion is noted. There is soft tissue swelling medial to the interphalangeal joint of the great toe. No foreign body is seen. XR/XR foot RT min 3V IMPRESSION: 1. No fracture, dislocation or right ankle joint effusion is seen. 2. There are calcaneal spurs, as detailed. 3. There is moderate osteoarthritic change of the right first metatarsophalangeal joint. There is mild bunion formation. 4. There is no focal bone erosion. Electronically signed by: Lucas Espinoza MD 10/11/2023 09:47 AM EDT
--- NOTE | ~2023-09-14 | XR_ITS ---
EXAMINATION: XR ANKLE, LEFT XR FOOT, LEFT CLINICAL INFORMATION: Rheumatoid arthritis. COMPARISON: Radiograph dated 07/13/2021. TECHNIQUE: AP, lateral, and mortise views of the left ankle. AP, lateral, and oblique views of the left foot. FINDINGS: Bony mineralization is normal. The ankle mortise is intact. There is a metatarsus adductus and hallux valgus configuration. No fracture, dislocation or left ankle joint effusion is seen. As with the contralateral side, there is an accessory ossification center of the navicular. Boehler's angle is normal. There are small posterior and very small plantar calcaneal spurs. There is marked osteoarthritic change of the first metatarsophalangeal joint. There is mild bunion formation the first metatarsal head. No abnormal bone erosion is seen. There is no focal soft tissue swelling, gas or foreign body. XR/XR foot LT min 3V IMPRESSION: 1. No fracture, dislocation or left ankle joint effusion is seen. 2. There is marked osteoarthritic change of the left first metatarsophalangeal joint, with bunion formation. 4. There are calcaneal spurs. 3. No focal bone erosion is noted. Electronically signed by: Lucas Espinoza MD 10/11/2023 09:51 AM EDT
--- NOTE | ~2023-09-14 | XR_ITS ---
EXAMINATION: XR HAND/WRIST, RIGHT XR HAND/WRIST, LEFT CLINICAL INFORMATION: Rheumatoid arthritis. COMPARISON: Prior radiographs dated 07/12/2021. TECHNIQUE: PA, lateral, and oblique views of the each hand and wrist. FINDINGS: RIGHT HAND/WRIST: Bony mineralization is normal. There is a neutral ulnar variance. There is moderate osteoarthritic change of the interphalangeal joint of the thumb. There is mild osteoarthritic change of the third and fourth proximal interphalangeal joints, and there is marked osteoarthritic change of the fifth distal interphalangeal joint, with lateral subluxation and peripheral osteophyte formation. There is moderately severe osteoarthritic change of the first through third metacarpophalangeal joints. There is marked osteoarthritic change of the first carpometacarpal joint. The proximal distal carpal rows are intact. There is narrowing of the radiocarpal interval. No fracture or dislocation is seen. There is no focal bone erosion. No foreign body is noted. LEFT HAND/WRIST: Bony mineralization is normal. There is a neutral ulnar variance. There is mild osteoarthritic change of the interphalangeal joint of the thumb. There is mild osteoarthritic change of the proximal and distal interphalangeal joints of the third finger, the proximal interphalangeal joint of the fourth finger and the proximal and distal interphalangeal joints of the fifth finger. There is mild medial subluxation at the fourth and fifth proximal interphalangeal joints. There is mild osteoarthritic change of the first through fourth metacarpophalangeal joints. There is marked osteoarthritic change of the first carpometacarpal and radiocarpal joints. The proximal and distal carpal rows are intact. No fracture or dislocation is seen. No focal erosion is noted. There is no focal soft tissue swelling, gas or foreign body. XR/XR hand wrist RT IMPRESSION: There are again multi-focal osteoarthritic changes of the bilateral hands and wrists. There are subluxations noted, as detailed. No bone erosion is seen. There is no fracture or dislocation. Electronically signed by: Lucas Espinoza MD 10/11/2023 04:43 PM EDT Workstation: -[id number]
[2023-09-14 16:01] LABS: MANUAL DIFF FLAG NO
[2023-09-14 19:17] LABS: Basophils Absolute Auto 0.1 X10*3/uL (0.0-0.2); Basophils Percent Auto 0.7 % (0-2); Eosinophils Absolute Auto 0.3 X10*3/uL (0.0-0.4); Eosinophils Percent Auto 3.7 % (0-4); Hematocrit 39.7 % (42.0-52.0); Hematocrit 39.8 % (42.0-52.0); Hemoglobin 13.3 g/dl (14.0-18.0); Imm Gran Abs Auto 0.02 X10*3/uL (0.00-0.03); Imm Gran Pct Auto 0.3 % (0.0-0.4); Lymphocytes Absolute Auto 1.4 X10*3/uL (1.2-4.9); Lymphocytes Percent Auto 18.4 % (20-40); Mean Corpuscular HGB Conc 32.7 g/dl (31.0-36.0); Mean Corpuscular HGB Conc 33.5 g/dl (31.0-36.0); Mean Corpuscular Hemoglobin 31.4 pg (27.0-33.0); Mean Corpuscular Hemoglobin 32.1 pg (27.0-33.0); Mean Corpuscular Volume 95.9 fL (80.0-98.0); Mean Corpuscular Volume 96.1 fL (80.0-98.0); Mean Platelet Volume 9.6 fL (9.4-12.4); Monocytes Absolute Auto 0.6 X10*3/uL (0.1-1.2); Monocytes Percent Auto 7.4 % (2-11); Neutrophils Absolute Auto 5.3 x10*3/uL (2.0-8.3); Neutrophils Percent Auto 69.5 % (45-73); Platelet Count 222 X10*3/uL (160-400); Platelet Count 223 X10*3/uL (160-400); Red Blood Count 4.14 X10*6/uL (4.60-5.80); Red Cell Distribution Width 13.3 % (11.0-16.0); White Blood Count 7.6 X10*3/uL (4.8-10.8); White Blood Count 7.7 X10*3/uL (4.8-10.8)
[2023-09-14 19:39] LABS: Alanine Aminotransferase 22 U/L (0-40); Albumin Level 4.5 g/dL (3.5-5.0); Alkaline Phosphatase 52 U/L (39-117); Anion Gap 11 (12-20); Aspartate Amino Transferase 27 U/L (5-37); Bilirubin Direct 0.1 mg/dL (0.0-0.5); Bilirubin Total 0.4 mg/dL (0.0-1.0); Blood Urea Nitrogen 23 mg/dL (9-16); C Reactive Protein < 0.10 mg/dL (< or = 0.50); Calcium 10.1 mg/dL (8.4-10.2); Carbon Dioxide 30 mmol/L (22-29); Chloride 102 mmol/L (96-108); Cholesterol 208 mg/dL (<200); Estimated Glomerular Filt Rate > 60; Glucose Random 89 mg/dL (60-115); HDL Cholesterol 91 mg/dL (>40); LDL Cholesterol Calculated 96 mg/dL (<100); Potassium 4.3 mmol/L (3.3-5.1); Sodium 139 mmol/L (135-145); Total Protein 7.5 g/dL (6.5-8.0); Triglycerides 106 mg/dL (<150)
[2023-09-14 19:56] LABS: Erythrocyte Sedimentation Rate 3 MM/HR (0-15)
[2023-09-16 23:09] LABS: TS Negative Control Passed; TS Panel A 2; TS Panel B 1; TS Positive Control Passed; TSpotTB Negative (Negative)
[2023-09-17 08:32] LABS: HBS Num1 0.58 mIU/mL (0-7.99); HBc Num1 0.16 S/CO (0.00-0.79); HBsAGNum1 0.24 S/CO (0.00-0.99); Hepatitis A Antibody IgM 0.13 Index (0-0.79); Hepatitis B Core Antibody Nonreactive (Nonreactive); Hepatitis B Surface Antigen Negative (Negative); ~HepC Num1 0.23 S/CO (0.00-0.79); ~Hepatitis A Antibody IgM Nonreactive (Nonreactive); ~Hepatitis B Surface Antibody NONREACTIVE (Nonreactive); ~Hepatitis C Antibody Nonreactive (Nonreactive)
[2023-09-17 15:44] LABS: IgA 185 mg/dL (70-320); IgG 1251 mg/dL (600-1540); IgM 135 mg/dL (50-300)
[2023-09-17 22:03] LABS: Prot Elec - Albumin 4.5 g/dL (3.8-4.8); Prot Elec - Alpha1 0.2 g/dL (0.2-0.3); Prot Elec - Alpha2 0.6 g/dL (0.5-0.9); Prot Elec - Beta 1 0.4 g/dL (0.4-0.6); Prot Elec - Beta 2 0.3 g/dL (0.2-0.5); Prot Elec - Gamma 1.2 g/dL (0.8-1.7); Prot Elec - Total Protein 7.1 g/dL (6.1-8.1)
== END 2023-09-14 14:33 | disposition home or self-care (01) ==
LOC: HO.XRAY 14:32
PROVIDERS: PCP Internal Medicine; Visit Provider Student in an Organized Health Care Education/Training Program
DX: Z11.7 Encounter for testing for latent tuberculosis infection (principal); Z11.59 Encounter for screening for other viral diseases; M25.50 Pain in unspecified joint; M06.9 Rheumatoid arthritis, unspecified; E78.00 Pure hypercholesterolemia, unspecified; R76.8 Other specified abnormal immunological findings in serum; Z72.89 Other problems related to lifestyle
CPT/HCPCS: 36415; 73110; 73130; 73610; 73630; 80053; 80061; 82248; 82784; 84165; 84443; 85025; 85027; 85652; 86140; 86334; 86481; 86704; 86706; 86709; 86803; 87340; 99212

== ENCOUNTER 2023-10-25 10:16 | Outpatient (AMB) | payer MEDICARE, SELFPAY ==
--- NOTE | 2023-10-25 10:23 | MHC.OFFVIS ---
Vital Signs 10/25/23 10:26 Height 5 ft 7 in Weight 132 lb 7.965 oz BMI 20.7 BP 132/80 Blood Pressure Location Lt brachial Position Sitting Pulse 54 Pulse Source Pulse Oximeter Pulse Oximetry (%) 99 Oxygen Delivery Method Room Air Intake Visit Reasons: RA/OA Intake Note: Patient presents for RA/OA. Allergies No Known Allergies [No Known Allergies*] Allergy (Verified 10/25/23 10:25) Medication List - Last Reconciled 10/25/23 by Katty Slater MD losartan 50 mg PO DAILY meloxicam 15 mg PO DAILY prednisone Take 4 tabs daily for 1 week then 3 tabs daily for 1 week then 2 tabs daily for 1 week then 1 tab daily for 1 week then stop HPI Comments Details: 73-year-old male with seropositive RA and OA presents for follow-up. He took prednisone taper as prescribed. He stated that it provided about 25% relief. He stated that there was no difference between taking 20 mg and 5 mg. It caused some dizziness. He has noticed triggering of his left middle finger Initial history with me: This is a 73-year-old male with arthritis who presents for follow-up. He was last seen by Dr. Avalos about 2 years ago. States that since then he has been taking meloxicam 15 mg daily in the morning. States that he continues to have pain and stiffness of his hands, knees, shoulders. Morning stiffness lasts 1 hour, gets intermittent swelling of his knuckles. 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 He has noticed some deformity of his thumbs, they are moving inside his hand. He is certain that patient's mother had rheumatoid arthritis Most recent history by Dr. Avalos 2021: The patient presents for evaluation of shoulder pain, wrist pain and a positive rheumatoid factor. For few years he has been having some aching in the wrists, usually after heavier physical activity. He had a fall on the right shoulder in early 2020. This was treated with some meloxicam and did improve for a while but then worsened again this fall. He also developed left shoulder pain this fall. The left shoulder now hurts more than the right. Symptoms are worse with lying on the shoulders at night. He notes decreased range of motion in the left shoulder. 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 [facility] Medical History (Updated 10/25/23 @ 10:54 by Katty Slater MD) Tendonitis of both rotator cuffs Shooting pain Osteoarthritis of hands, bilateral Left shoulder strain Hypercholesterolemia Surgical History History of brain surgery History of hernia repair Family History Mother No problems noted. Father No problems noted. Social History Housing: House Alcohol intake: current Alcohol intake frequency: holidays/special occasions only Patient Tobacco Use Status: Never used Tobacco e-Cigarette/Vaping Use: Never Used Second Hand Smoke Exposure: No service: No Current occupational status: employed and retired Cognitive needs: No Hearing needs: No Vision needs: No Review of Systems Musc Reports deformity, Reports arthralgias, Reports joint swelling, Reports limited range of motion and Reports stiffness Physical Exam Vital Signs: Last Vital Signs Pulse 54 10/25/23 10:26 BP 132/80 10/25/23 10:26 Pulse Ox 99 10/25/23 10:26 Oxygen Delivery Method Room Air 10/25/23 10:26 BMI result Body Mass Index 20.7 Const General: cooperative, healthy appearing and comfortable Nutritional Appearance: average body habitus Orientation/consciousness: patient oriented x3 Limitations: no limitations HEENT Head: Yes normocephalic and Yes atraumatic Mouth: moist mucous membranes Resp Effort & Inspection: normal respiratory effort and able to speak in complete sentences Skin General skin exam: no rashes or lesions noted Neuro General: patient oriented x3 Extrem Other: No wrist tenderness or swelling bilaterally Bilateral limited wrist flexion and extension Puffiness of right 2nd and 3rd MCPs [place]-neck deformity of right 3rd finger Deformity of thumbs bilaterally [place]-neck deformity of left middle finger 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 No elbow pain with flexion-extension Bilateral limited shoulder abduction Negative empty can test and infraspinatus test bilaterally Normal nailfold capillaroscopy Bilateral ankle tenderness to palpation Bilateral bunions, more prominent on the left Negative MTP squeeze test Right dorsal foot tenderness without swelling Assessment & Plan Assessment & Plan (1) Seropositive rheumatoid arthritis: Comment: +RF dx 09/2023 deforming Code(s): M05.9 - Rheumatoid arthritis with rheumatoid factor, unspecified Category: Medical Plan: This is a 73-year-old male with seropositive RA who presents for follow-up. He has been taking prednisone taper as prescribed. He noticed about 25 improvement in his overall joint pain and stiffness. He has noticed some dizziness. Did not feel a difference between 20 and 5 mg of prednisone. I would like to try patient on a mild DMARD. Discussed risks and benefits of hydroxychloroquine. Patient agreed to proceed. Start hydroxychloroquine 300 mg daily Can take meloxicam 15 mg p.o. daily for the 1st month then take 1 tab once daily as needed Labs before next visit in 3 months (2) Long-term use of hydroxychloroquine: Code(s): Z79.899 - Other half section ironer (current) drug therapy Category: Medical Plan: Discussed risk of retinopathy associated with hydroxychloroquine. 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 Has different treatment options. At this time patient will wear a Band-Aid at his PIP at night. Discussed OTC finger splints. Plan I spent 39 minutes reviewing patient's chart, evaluating patient, ordering diagnostic workup, counseling patient and documenting in the chart Orders: Orders Comprehensive Met. Panel 3 Months M05.9 - Rheumatoid arthritis with rheumatoid factor, unspecified Erythrocyte Sedimentation Rate 3 Months M05.9 - Rheumatoid arthritis with rheumatoid factor, unspecified C Reactive Protein 3 Months M05.9 - Rheumatoid arthritis with rheumatoid factor, unspecified Complete Blood Count Auto Diff 3 Months M05.9 - Rheumatoid arthritis with rheumatoid factor, unspecified Medications: New hydroxychloroquine 300 mg (1.5 x 200 mg) PO DAILY 135 tabs 0RF Refilled meloxicam 15 mg PO DAILY 90 tabs 1RF Discontinued prednisone Discontinued Reason: Doctor's Order Take 4 tabs daily for 1 week then 3 tabs daily for 1 week then 2 tabs daily for 1 week then 1 tab daily for 1 week then stop 70 tabs 0RF Coding Level of Care Code Est Pt Level 4 (06402) Diagnoses Seropositive rheumatoid arthritis M05.9 Long-term use of hydroxychloroquine Z79.899 Primary osteoarthritis of both hands M19.041; M19.042 Osteoarthritis type: primary Trigger finger, left middle finger M65.332
[2023-10-25 10:26] VITALS: BP 132/80; PULSE 54; O2SAT 99; BMI 20.7
== END 2023-10-25 10:54 | disposition home or self-care (01) ==
PROVIDERS: PCP Internal Medicine; Visit Provider Student in an Organized Health Care Education/Training Program
DX: M05.79 Rheumatoid arthritis with rheumatoid factor of multiple sites without organ or systems involvement (principal); Z79.899 Other long term (current) drug therapy; M19.041 Primary osteoarthritis, right hand; M19.042 Primary osteoarthritis, left hand; M65.332 Trigger finger, left middle finger
CPT/HCPCS: 99214

== ENCOUNTER → 2023-10-25 10:16 | Outpatient (BNVA) | payer MEDICARE, SELFPAY | PROVIDERS: PCP Internal Medicine; Visit Provider Student in an Organized Health Care Education/Training Program | DX: M05.9 Rheumatoid arthritis with rheumatoid factor, unspecified (principal); M19.042 Primary osteoarthritis, left hand; M19.041 Primary osteoarthritis, right hand; Z79.899 Other long term (current) drug therapy; M65.332 Trigger finger, left middle finger | CPT/HCPCS: 99212 ==

== ENCOUNTER 2024-03-19 09:27 | Outpatient (AMB) | payer MEDICARE, SELFPAY ==
--- NOTE | 2024-03-19 09:30 | MHC.PC.OV ---
Vital Signs 03/19/24 09:32 Height 5 ft 7 in Weight 129 lb 4 oz BMI 20.2 BP 142/70 H Blood Pressure Location Lt brachial Position Sitting Pulse 58 Pulse Source Pulse Oximeter Temp 97.5 F Temp Source Skin Pulse Oximetry (%) 100 Oxygen Delivery Method Room Air Intake Visit Reasons: 6 month follow up Intake Note: Patient is here to follow up on Polyarthralgia, Hypercholesterolemia. Pt decline flu shot today. Tribal Delegate Required: No Coal Gasification Technician: Not Required per policy Accompanied by: Self / Same As Patient Allergies No Known Allergies [No Known Allergies*] Allergy (Verified 03/19/24 09:46) Medication List - Last Reconciled 03/19/24 by AMY Chicas hydroxychloroquine 300 mg (1.5 x 200 mg) PO DAILY losartan 50 mg PO DAILY meloxicam 15 mg PO DAILY Tobacco use date assessed: 03/19/24 Fall risk assessment: No Falls in past year Last assessed Fall Risk: 03/19/24 Dental Screening Dental Screen Date: 03/19/24 Did you have a dental visit in the last 12 months?: No Did you have a dental problem in the last 6 months where you did not have access to dental care?: No Was dental information given to patient?: No HPI 6 month follow up HPI Details The patient is a 74-year-old male with significant past medical history of seropositive rheumatoid arthritis, osteoarthritis of hands bilaterally, polyarthralgia, hydrocephalus associated with congenital aqueduct stenosis, acne and hypercholesterolemia The patient is presenting today for follow up of chronic conditions Patient reports that he has been losing weight and he is not sure why Per chart, the patient lost 3 lb over a 4 month span; discussed with patient that losing 3 lb over 4 months is not a big loss and he should continue to monitor Patient reports that he does not think that his hydroxychloroquine is making a difference, discussed with patient to follow up with Rheumatology Patient reports upper airway congestion, reports that he is coughing up clear phlegm and that his cough is worse in the night when laying down He denies fevers or chills, denies sore throat, new muscle aches (patient has chronic joint pain), denies ear pain Patient reports that he was prescribed Z-Fidencio about a month ago for bronchitis with improvement but he still has some residuals tx: Reports using Mucinex D with improvement BP: Was slightly above normal reports that he has not taken his blood pressure medications as yet due to rushing to make this appointment t [facility] Medical History Tendonitis of both rotator cuffs Shooting pain Osteoarthritis of hands, bilateral Left shoulder strain Hypercholesterolemia Surgical History History of brain surgery History of hernia repair Family History Mother No problems noted. Father No problems noted. Social History Housing: House Alcohol intake: current Alcohol intake frequency: does not drink Patient Tobacco Use Status: Never used Tobacco e-Cigarette/Vaping Use: Never Used Second Hand Smoke Exposure: No service: No Current occupational status: employed and retired Cognitive needs: No Hearing needs: No Vision needs: No Questionnaire PHQ-9 Over the last 2 weeks, how often have you been bothered by any of the following problems? 1. Little interest or pleasure in doing things: not at all 2. Feeling down, depressed, or hopeless: not at all 3. Trouble falling or staying asleep, or sleeping too much: not at all 4. Feeling tired or having little energy: not at all 5. Poor appetite or overeating: not at all 6. Feeling bad about yourself - or that you are a failure or have let yourself or your family down: not at all 7. Trouble concentrating on things, such as reading the newspaper or watching television: not at all 8. Moving or speaking so slowly that other people could have noticed. Or the opposite - being so fidgety or restless that you have been moving around a lot more than usual: not at all 9. Thoughts that you would be better off or of hurting yourself in some way: not at all Total score: 0 Depression Screening Interpretation: Negative Depression Screening Done: Yes 66328 - PHQ-9 Billing: Yes Source: Developed by Drs. Carlos Doty, Shweta Arechiga, Mario Hernandez and colleagues, with an educational claribel from [employer] [facility] [employer]. Thrive Questionnaire Date Thrive assessed: 03/19/24 I am a: Patient What is your living situation today?: I have a steady place to live Within the past 12 months, did the food you bought not last and you didn't have the money to get more?: Never true Within the past 12 months, did you worry whether your food would run out before you got money to buy more?: Never true Do you have trouble paying for medicines?: No Do you have trouble getting transportation to medical appointments?: No Do you have trouble paying your heating and electricity bill?: No Do you have trouble taking care of your child, family member or friend?: No Do you have trouble with day-to-day activities such as bathing, preparing meals, shopping, managing finances, etc.?: No Are you currently unemployed and looking for a job?: No Are you interested in more education?: No Please select the resources that you would like help with: None Currently or been in a relationship where the following occur: No concerns reported THRIVE Score: 0 AUDIT C Alcohol Use Questionnaire (AUDIT-C) 1. How often do you have a drink containing alcohol?: Monthly or less 2. How many drinks containing alcohol do you have on a typical day when you are drinking?: 1 or 2 3. How often do you have six or more drinks on one occasion?: Never Total Score: 1 ALYCE-7 AMB Questionnaire ALYCE-7 Date ALYCE - 7 assessed: 03/19/24 Feeling nervous, anxious, or on edge: 0 = Not at all Not being able to stop or control worryin = Not at all Worrying too much about different things: 0 = Not at all Trouble relaxin = Not at all Being so restless that it is hard to sit still: 0 = Not at all Becoming easily annoyed or irritable: 0 = Not at all Feeling afraid as if something awful might happen: 0 = Not at all Total ALYCE-7 score (0-4 normal; 5-9 mild; 10-14 moderate; 15-21 severe): 0 Source: Developed by Drs. Carlos Doty, Shweta Arechiga, Mario Hernandez and colleagues, with an educational claribel from [employer] ALYCE-7 Assessment Billing ALYCE-7 Assessment Tool: ALYCE-7 Assessment 09862 Review of Systems Const Details: Denies chills, Denies fatigue, Denies fever(s), Denies headache(s) and Denies weakness HEENT Denies change in vision, Denies dizziness, Denies headache(s), Denies hearing loss, reports nasal congestion, Denies sinus pain, Denies sinus pressure and Denies sore throat Card Denies chest pain, Denies lightheadedness, Denies dyspnea and Denies other (palpitations) Resp Reports cough(especially at night when laying down), Denies dyspnea and Denies wheezing GI Denies abdominal pain, Denies melena, Denies hematochezia, Denies change in bowel habits, Denies dyspepsia and Denies nausea Denies hematuria and Denies dysuria Musc Denies abnormal gait, Denies myalgias, reports chronic arthralgias (knuckles, wrists and left shoulder, Denies numbness and Denies tingling Skin/Breast Denies rash, Denies unusual bruising and Denies wounds Neuro Denies abnormal gait, Denies dizziness, Denies headache(s), Denies memory loss, Denies numbness, Denies Sensory deficit (Neuro), Denies tingling and Denies weakness Psych Denies anxiety, Denies depression and Denies memory loss Endo Denies cold intolerance, Denies fatigue, Denies heat intolerance, Denies polydipsia and Denies polyuria Tommie/Lymph Denies easy bleeding and Denies easy bruising Aller/Immun Denies wheezing Physical exam (Primary Care) Vital Signs: Last Vital Signs Temp 97.5 F 03/19/24 09:32 Pulse 58 03/19/24 09:32 BP 142/70 H 03/19/24 09:32 Pulse Ox 100 03/19/24 09:32 Oxygen Delivery Method Room Air 03/19/24 09:32 BMI result Body Mass Index 20.2 Tobacco/Smoking Status: Tobacco use Status Tobacco use date assessed 03/19/24 03/19/24 09:37 Patient Tobacco Use Status Never used Tobacco 03/19/24 09:37 e-Cigarette/Vaping Use Never Used 03/19/24 09:37 PHQ-9: PHQ-9 Score PHQ-9: Total score 0 03/19/24 09:44 Depression Screening Interpretation: Negative Thrive Assessment: Date of Thrive Assessment Date Thrive assessed 03/19/24 03/19/24 09:37 Currently or been in a relationship where the following occur: No concerns reported Const Other: General: no acute distress, well developed, alert and awake Nutritional Appearance: well nourished Orientation/consciousness: patient oriented x3 [facility] Head: Yes normocephalic and Yes atraumatic Ears: hearing grossly normal bilaterally and TM's normal bilaterally General nose exam: Normal external nose present, bilateral nares erythema with boggy turbinates Mouth: Normal oral and palatal mucosa present and moist mucous membranes Eyes Pupils: Equal, round and reactive pupils present and Pupil accommodation reflex normal EOM: EOMs intact bilaterally Neck Neck: Yes normal visual inspection, Yes no lymphadenopathy and Yes trachea midline Thyroid: Thyroid normal Lymphatic: no lymphadenopathy noted Chest Chest palpation & inspection: normal inspection of the chest Resp Effort & Inspection: normal respiratory effort Auscultation: clear to auscultation bilaterally Cardio Rate: regular rate Rhythm: regular rhythm Heart sounds: S1 normal heart sound present, S2 normal heart sound present, no gallops, no murmurs and no rubs GI Palpation (GI): abdomen soft and nontender to palpation Auscultation: normal bowel sounds General: Yes no CVA tenderness Back/Spine/Pelvis Back: no CVA tenderness Cervical Spine: cervical ROM normal and No Cervical spine tenderness Thoracic/Lumbar Spine: No lumbar spinal tendernes other: left shoulder pain with ROM, wrists pain with ROM Skin General: warm and dry. Normal skin color. Normal skin turgor Lesions: no lesions Rashes: no rashes Trauma: no lacerations or abrasions Wounds: no wounds Nails: normal Neuro General: patient oriented x3, gait normal Cranial nerves: Yes Equal, round and reactive pupils present Cognition (Neuro): normal cognition Gait exam (Neuro): Normal gait present Extrem General: Yes normal to inspection, No edema and No calf tenderness Psych Appearance: grossly normal Affect: normal affect Attitude: cooperative Thought process: Normal thought process present Results Reviewed Results Reviewed: Laboratory Tests 03/19/24 10:56 Triglycerides 55 Cholesterol 193 LDL Cholesterol, Calc 93 HDL Cholesterol 89 Laboratory Tests 03/19/24 10:56 RBC 4.28 L Hgb 13.3 L Hct 40.9 L Sodium 136 Potassium 5.1 Chloride 105 Carbon Dioxide 27 Anion Gap 9 L BUN 22 H Creatinine 0.98 Estimated GFR > 60 Random Glucose 86 AST 31 ALT 25 Alkaline Phosphatase 58 Coding Level of Care Code Est Pt Level 4 (63226) Diagnoses Long-term use of hydroxychloroquine Z79.899 Seropositive rheumatoid arthritis M05.9 Acute cough R05.1 Cough type: acute Primary osteoarthritis of both hands M19.041; M19.042 Osteoarthritis type: primary Hypercholesterolemia E78.00 Nasal congestion R09.81 Elevated BP without diagnosis of hypertension R03.0 Additional Codes PHQ-9 - 67617 - PHQ-9 Billing: Yes ([id number]) ALYCE-7 Assessment Billing - ALYCE-7 Assessment Tool: ALYCE-7 Assessment 38308 ([id number]) Time Spent (min) 36 Assessment & Plan Assessment & Plan (1) Long-term use of hydroxychloroquine: Code(s): Z79.899 - Other terminal gauger (current) drug therapy Category: Medical Plan: Patient reports that he does not think that the hydroxychloroquine 300mg daily is making much of a difference Discussed with patient that he should follow up with Rheumatology (2) Seropositive rheumatoid arthritis: Comment: +RF dx 09/2023 deforming Code(s): M05.9 - Rheumatoid arthritis with rheumatoid factor, unspecified Category: Medical Plan: Continue hydroxychloroquine 200 mg daily and meloxicam 15 mg daily Follow up with rheumatology as scheduled (3) Cough: Code(s): R05.9 - Cough, unspecified Category: Medical Qualifiers: Cough type: acute Qualified Code(s): R05.1 - Acute cough Plan: Reports ongoing cough post bronchitis post antibiotic treatment He has been using Mucinex D with positive effect. The patient also complained of nasal congestion, his cough most likely being triggered postnasal drip Loratadine 10 mg daily p.r.n. as needed and fluticasone propionate 50 mcg/actuation 1 spray intranasal b.i.d. (4) Osteoarthritis of hands, bilateral: Code(s): M19.041 - Primary osteoarthritis, right hand; M19.042 - Primary osteoarthritis, left hand Category: Medical Qualifiers: Osteoarthritis type: primary Qualified Code(s): M19.041 - Primary osteoarthritis, right hand; M19.042 - Primary osteoarthritis, left hand Plan: Continue meloxicam 15 mg daily. Activity modification as tolerated (5) Hypercholesterolemia: Code(s): E78.00 - Pure hypercholesterolemia, unspecified Category: Medical Plan: Cholesterol studies within normal limits Reinforced a diet low in cholesterol/activity as tolerated (6) Nasal congestion: Code(s): R09.81 - Nasal congestion Category: Medical Plan: Fluticasone propionate 50 mcg for assess actuation 1 spray intranasally b.i.d. and loratadine 10 mg daily p.r.n. (7) Elevated BP without diagnosis of hypertension: Code(s): R03.0 - Elevated blood-pressure reading, without diagnosis of hypertension Category: Medical Plan: Patient reports that his blood pressure slightly elevated due to rushing to make the appointment Reinforced low-sodium diet, low caffeine and alcohol intake Continue losartan 50 mg daily Plan Patient to follow up in six-month labs ordered for six-month follow up appointment Orders: Orders Lipid Panel 03/19/24 E78.00 - Pure hypercholesterolemia, unspecified Medications: New fluticasone propionate 50 mcg/actuation administer into each nostril 1 spray intranasal BID 16 grams 0RF loratadine (Allergy Relief (loratadine)) 10 mg PO DAILY PRN 30 tabs 0RF allergy symptoms Refilled hydroxychloroquine 300 mg (1.5 x 200 mg) PO DAILY 135 tabs 0RF
[2024-03-19 09:32] VITALS: BP 142/70; PULSE 58; TEMP 36.4; O2SAT 100; BMI 20.2
--- OUTSIDE RECORDS SUMMARY | 2024-03-19 09:56 | XMS_ITS | Clinical Summary ---
Author Organization [facility] Address [address] [place] [address] Care Team Providers Care Senior Software Manager Name Role Phone Pcp, No Primary Care Provider [phone] Allergies No known active allergies Medications No known medications Social History Tobacco Use Types Packs/Day Years Used Date Smoking Tobacco: Never Passive Smoke Exposure: Never Smokeless Tobacco: Never Tobacco Cessation:Counseling Given: Not Answered PHQ-2 Answer Date Recorded PHQ-2 Score Patient declined 09/04/2022 Sex and Gender Information Value Date Recorded Sex Assigned at Not on file Legal Sex Male 8:30 AM EDT Gender Identity Not on file Sexual Orientation Not on file Last Filed Vital Signs Vital Sign Reading Time Taken Comments Blood Pressure 142/80 09/04/2022 3:43 PM EDT Pulse 72 09/04/2022 3:42 PM EDT Temperature 37 ??C (98.6 ??F) 09/04/2022 3:42 PM EDT Respiratory Rate 16 09/04/2022 3:42 PM EDT Oxygen Saturation 99% 09/04/2022 3:42 PM EDT Inhaled Oxygen Concentration - - Weight - - Height - - Body Mass Index - - Plan of Treatment Health Maintenance Due Date Last Done Comments Colorectal Cancer: COLONOSCO PY Screening every 10 yrs (or Modifier) 1949 Depression: Screening Annual ly using PHQ-2/9 in Adults 18 yrs or above (or HM Modifier)([facility]) 1967 Hepatitis C Virus Infection in Adolescents and Adults: Screening (or Modifier) ([facility]) 1967 SDOH Screening Reminder: Elisha staley for all adults ([facility]) 1967 Tobacco Smoking Cessation: i n Adults excluding Women: Behavioral and Pharmacotherapy Interventions ([facility]) 1967 DTaP/Tdap/Td Vaccines ([facility]) (1 - Tdap) 01/20/1968 Lipid Screening: Every 5 yrs for Men aged 35+ (or HM Modifier) ([facility]) 1985 Colorectal Cancer Screening 45 -75 Yrs (or HM Modifier ) 1994 Colorectal Cancer: FLEXIBLE SIGMOIDOSCOPY Screening every 5 yrs 1994 Colorectal Cancer: Fecal Imm unochemical Test (FIT) Annually [facility] 1994 Colorectal Cancer: High-sens itivity gFOBT Screening Annually [facility] 1994 Colorectal Cancer: Stool Col oguard Screening every 3 yrs 1994 Colorectal Cancer:CT Colonography Screening every 5 yr s 1994 Zoster/Shingles Vaccine Seri es Screening: Adults aged 18+ yrs (or HM Modifiers)([facility]) (1 of 2) 1999 Pneumococcal Vaccination Scr eening: Patients 65+ yrs of age ([facility]) (1 of 1 - PCV) 2014 Flu Vaccination: Ages 65+: Y early High Dose Recommended (or Modifier)([facility]) 09/13/2023 COVID-19 Vaccine Screening: Initial Series and Booster Status ([facility]) ( - 2023-25 season) 2023 RSV Vaccines (1 - 1-dose 75+ series) 01/20/2024 Medical Devices Not on file Insurance MEDICARE Care Teams Senior Software Manager Relationship Specialty Start Date End Date Pcp, Pam PCP - General Family Medicine 09/04/22
== END 2024-03-19 10:28 | disposition home or self-care (01) ==
PROVIDERS: PCP Internal Medicine
DX: Z79.899 Other long term (current) drug therapy (principal); M05.9 Rheumatoid arthritis with rheumatoid factor, unspecified; R05.1 Acute cough; M19.041 Primary osteoarthritis, right hand; M19.042 Primary osteoarthritis, left hand; E78.00 Pure hypercholesterolemia, unspecified; R09.81 Nasal congestion; R03.0 Elevated blood-pressure reading, without diagnosis of hypertension

== ENCOUNTER 2024-03-19 10:45 | Outpatient (REF) | payer MEDICARE, SELFPAY ==
[2024-03-19 10:57] LABS: MANUAL DIFF FLAG NO
[2024-03-19 11:16] LABS: Basophils Percent Auto 0.8 % (0-2); Eosinophils Absolute Auto 0.5 X10*3/uL (0.0-0.4); Eosinophils Percent Auto 9.2 % (0-4); Hematocrit 40.9 % (42.0-52.0); Hemoglobin 13.3 g/dl (14.0-18.0); Imm Gran Abs Auto 0.02 X10*3/uL (0.00-0.03); Imm Gran Pct Auto 0.4 % (0.0-0.4); Lymphocytes Absolute Auto 1.1 X10*3/uL (1.2-4.9); Lymphocytes Percent Auto 21.6 % (20-40); Mean Corpuscular HGB Conc 32.5 g/dl (31.0-36.0); Mean Corpuscular Hemoglobin 31.1 pg (27.0-33.0); Mean Corpuscular Volume 95.6 fL (80.0-98.0); Mean Platelet Volume 8.7 fL (9.4-12.4); Monocytes Absolute Auto 0.5 X10*3/uL (0.1-1.2); Monocytes Percent Auto 10.4 % (2-11); Neutrophils Absolute Auto 2.8 x10*3/uL (2.0-8.3); Neutrophils Percent Auto 57.6 % (45-73); Platelet Count 183 X10*3/uL (160-400); Red Blood Count 4.28 X10*6/uL (4.60-5.80); Red Cell Distribution Width 13.6 % (11.0-16.0); White Blood Count 4.9 X10*3/uL (4.8-10.8)
[2024-03-19 11:35] LABS: Alanine Aminotransferase 25 U/L (0-40); Albumin Level 4.2 g/dL (3.5-5.0); Alkaline Phosphatase 58 U/L (39-117); Anion Gap 9 (12-20); Aspartate Amino Transferase 31 U/L (5-37); Bilirubin Total 0.4 mg/dL (0.0-1.0); Blood Urea Nitrogen 22 mg/dL (9-16); C Reactive Protein < 0.10 mg/dL (< or = 0.50); Calcium 9.4 mg/dL (8.4-10.2); Carbon Dioxide 27 mmol/L (22-29); Chloride 105 mmol/L (96-108); Cholesterol 193 mg/dL (<200); Estimated Glomerular Filt Rate > 60; Glucose Random 86 mg/dL (60-115); HDL Cholesterol 89 mg/dL (>40); LDL Cholesterol Calculated 93 mg/dL (<100); Potassium 5.1 mmol/L (3.3-5.1); Sodium 136 mmol/L (135-145); Total Protein 7.5 g/dL (6.5-8.0); Triglycerides 55 mg/dL (<150)
[2024-03-19 11:50] LABS: Erythrocyte Sedimentation Rate 5 MM/HR (0-15)
== END 2024-03-19 10:46 | disposition home or self-care (01) ==
LOC: HO.LAB 10:45
PROVIDERS: Absent Provider Student in an Organized Health Care Education/Training Program; PCP Internal Medicine; Visit Provider Internal Medicine
DX: M05.9 Rheumatoid arthritis with rheumatoid factor, unspecified (principal); R05.1 Acute cough; M19.041 Primary osteoarthritis, right hand; M19.042 Primary osteoarthritis, left hand; E78.00 Pure hypercholesterolemia, unspecified; R09.81 Nasal congestion; R03.0 Elevated blood-pressure reading, without diagnosis of hypertension; Z79.899 Other long term (current) drug therapy
CPT/HCPCS: 36415; 80053; 80061; 85025; 85652; 86140; 96127; 99212

== ENCOUNTER 2024-07-23 15:08 | Outpatient (AMB) | payer MEDICARE, SELFPAY ==
--- NOTE | 2024-07-23 15:21 | AM.OFFWIN_ITS ---
Intake Vital Signs 07/23/24 15:22 Height 5 ft 7 in Weight 136 lb 4 oz BMI 21.3 BP 128/74 Blood Pressure Location Lt brachial Position Sitting Pulse 66 Pulse Source Pulse Oximeter Temp 97.5 F Temp Source Oral Pulse Oximetry (%) 99 Oxygen Delivery Method Room Air Intake Visit Reasons: PE Poison Andreia Intake Note: Pt presents to the office today for c/o poison andreia on his arms and lower abdomen. Pt states it is itchy and started about 2 weeks ago. Patient Tobacco Use Status: Never used Tobacco Allergies No Known Allergies [No Known Allergies*] Allergy (Verified 07/23/24 15:23) HPI HPI Comments History of Present Illness Details History of Present Illness - The patient is a 74-year-old male pres enting with contact dermatitis due to poison andreia. - Rash onset occurred approximately two weeks ago after exposure to hay containing poison andreia. - Affected areas include the arms bilate rally and abdomen, below the beltline. - The condition recurs almost annually d ue to similar exposure, typically managed with prednisone and hydrocortisone cream. - Symptom inquiry revealed no associated systemic symptoms such as fever, chills, or respiratory distress. - He denies new lotions, soaps, detergen ts, medications, foods, clothes, pets, or travel. He denies fever, chills, joint pain, or other lesions. Physical Exam General: Cooperative, healthy appearing, comfortable, no acute distress and well developed Respiratory: Normal respiratory effort and able to speak in complete sentences. Clear to auscultation bilaterally Cardiovascular: Regular rate and rhythm. Normal S1 and S2 Skin: Lesions noted on arms and a little bit on the belly, right under the beltline Neuro: Sensation intact. Extremities: Normal to inspection Patient was informed and verbally consented to the use of an ambient scribe for clinic note documentation during this visit. [facility] Medical History Tendonitis of both rotator cuffs Shooting pain Osteoarthritis of hands, bilateral Left shoulder strain Hypercholesterolemia Surgical History History of brain surgery History of hernia repair Family History Mother No problems noted. Father No problems noted. Social History Housing: House Alcohol intake: current Alcohol intake frequency: does not drink Patient Tobacco Use Status: Never used Tobacco e-Cigarette/Vaping Use: Never Used Second Hand Smoke Exposure: No service: No Current occupational status: employed and retired Cognitive needs: No Hearing needs: No Vision needs: No Review of Systems Const All systems reviewed & are unremarkable except as noted in HPI and below Physical Exam Vital Signs: Last Vital Signs Temp 97.5 F 07/23/24 15:22 Pulse 66 07/23/24 15:22 BP 128/74 07/23/24 15:22 Pulse Ox 99 07/23/24 15:22 Oxygen Delivery Method Room Air 07/23/24 15:22 BMI result Body Mass Index 21.3 Assessment & Plan Assessment & Plan (1) Rash: Code(s): R21 - Rash and other nonspecific skin eruption Plan Most likely poison andreia vs contact dermatitis Plan - Prescribe prednisone to manage inflammation from contact dermatitis. - Hydrocortisone cream prescribed to alleviate localized symptoms of rash and itchiness. - Medications to be electronically sent to pharmacy; patient informed of potential side effects including immune suppression and skin atrophy. Medications: New hydrocortisone 2.5% 1 appl topical BID 10 days PRN 30 grams 0RF Skin Irritation prednisone 40 mg (2 x 20 mg) PO DAILY 5 days 10 tabs 0RF Coding Level of Care Code Est Pt Level 3 (46677) Diagnoses Rash R21
[2024-07-23 15:22] VITALS: BP 128/74; PULSE 66; TEMP 36.4; O2SAT 99; BMI 21.3
--- OUTSIDE RECORDS SUMMARY | 2024-07-23 17:29 | XMS_ITS | Clinical Summary ---
Author Organization [facility] [employer] [facility] Address [address] [place] [address] Care Team Providers Care Security Advisor Name Role Phone Pcp, No Primary Care Provider [phone] Allergies No known active allergies Medications No [...] Adults 18 yrs or above (or HM Modifier)([facility]) 1967 Hepatitis C Virus Infection in Adolescents and Adults: Screening (or Modifier) ([facility]) 1967 SDVA Screening Reminder: Elisha staley for all adults ([facility]) 1967 Tobacco Smoking Cessation: i n Adults excluding Women: Behavioral and Pharmacotherapy Interventions ([facility]) 1967 DTaP/Tdap/Td Vaccines ([facility]) (1 - Tdap) 01/20/1968 Colorectal Cancer Screening 45 -75 Yrs (or HM Modifier ) 1994 Colorectal Cancer: FLEXIBLE SIGMOIDOSCOPY Screening every 5 yrs 1994 Colorectal Cancer: Fecal Imm unochemical Test (FIT) Annually [facility] 1994 Colorectal Cancer: High-sens itivity gFOBT Screening Annually [facility] 1994 Colorectal Cancer: Stool Col oguard Screening every 3 yrs 1994 Colorectal Cancer:CT Colonography Screening every 5 yr s 1994 Pneumococcal Vaccination Scr eening: Patients 50+ yrs of age ([facility]) (1 of 1 - PCV) 1999 Zoster/Shingles Vaccine Seri es Screening: Adults aged 18+ yrs (or HM Modifiers)([facility]) (1 of 2) 1999 COVID-19 Vaccine Screening: Initial Series and Booster Status ([facility]) ( - 2023-25 season) 2023 RSV Vaccines (1 - 1-dose 75+ series) 01/20/2024 Flu Vaccination: Ages 65+: Y early High Dose Recommended (or Modifier)([facility]) 09/12/2024 Medical Devices Not on file Insurance MEDICARE Care Teams Security Advisor Relationship Specialty Start Date End Date Pcp, Pam PCP - General Family Medicine 09/04/22
== END 2024-07-23 15:50 | disposition home or self-care (01) ==
PROVIDERS: PCP Internal Medicine; Visit Provider Physician Assistant Medical
DX: R21 Rash and other nonspecific skin eruption (principal)

== ENCOUNTER → 2024-07-23 15:08 | Outpatient (BNVA) | payer MEDICARE, SELFPAY | PROVIDERS: PCP Internal Medicine; Visit Provider Physician Assistant Medical | DX: R21 Rash and other nonspecific skin eruption (principal) | CPT/HCPCS: 99212 ==

== ENCOUNTER 2024-09-17 12:06 | Outpatient (AMB) | payer MEDICARE, SELFPAY ==
--- NOTE | 2024-09-17 12:35 | MHC.OFFVIS ---
Vital Signs 09/17/24 12:41 Height 5 ft 7 in Weight 131 lb 8 oz BMI 20.6 BP 130/78 Blood Pressure Location Lt brachial Position Sitting Pulse 61 Pulse Source Pulse Oximeter Pulse Oximetry (%) 100 Oxygen Delivery Method Room Air Intake Visit Reasons: RA Intake Note: Patient last seen by Doctor Katty Slater on 10/25/23. Presents today for RA follow up. Patient states that the hydroxy cloroquine is not working, still feeling symptoms, and would like to try something else. 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 He was last seen by Dr. Avalos about 2 years ago. States that since then he has been taking meloxicam 15 mg daily in the morning. States that he continues to have pain and stiffness of his hands, knees, shoulders. Morning stiffness lasts 1 hour, gets intermittent swelling of his knuckles. 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 He has noticed some deformity of his thumbs, they are moving inside his hand. He is certain that patient's mother had rheumatoid arthritis Most recent history by Dr. Avalos 2021: The patient presents for evaluation of shoulder pain, wrist pain and a positive rheumatoid factor. For few years he has been having some aching in the wrists, usually after heavier physical activity. He had a fall on the right shoulder in early 2020. This was treated with some meloxicam and did improve for a while but then worsened again this fall. He also developed left shoulder pain this fall. The left shoulder now hurts more than the right. Symptoms are worse with lying on the shoulders at night. He notes decreased range of motion in the left shoulder. 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 He also runs a [employer] part-time. Current Rheumatology Medication(s): Hydroxychloroquine 300mg bid [facility] Medical History Tendonitis of both rotator cuffs Shooting pain Osteoarthritis of hands, bilateral Left shoulder strain Hypercholesterolemia Surgical History History of brain surgery History of hernia repair Family History Mother No problems noted. Father No problems noted. Social History Housing: House Alcohol intake: current Alcohol intake frequency: does not drink Patient Tobacco Use Status: Never used Tobacco e-Cigarette/Vaping Use: Never Used Second Hand Smoke Exposure: No service: No Current occupational status: employed and retired Cognitive needs: No Hearing needs: No Vision needs: No Review of Systems Const Details: Review of Systems Constitutional: Denies fever, chills, weight loss ENT: Denies vision changes, eye pain or eye redness, dental caries, dry mouth GI: Denies nausea, vomiting, diarrhea, abdominal pain, change in BM Pulm: Denies SOB, KHAN, hemoptysis, wheezing Cards: Denies chest pain, palpitations Skin: Denies Raynaud's, rash, nail changes, photosensitivity, BELT [employer]ER: Denies headaches, weakness, paresthesias, recurrent falls MSK: as per HPI All other systems reviewed and are unremarkable except noted above Physical Exam Exam Exam: Vital signs reviewed Physical Examination CONSTITUITIONAL Patient alert and cooperative. Well appearing and in no apparent painful distress MSK Hands Prominent Herbedens nodes and bouchards noted bilaterally Reducible swan neck deformities Mild TTP of the PIPs and DIPs Wrists Slightly decreased ROM bilaterally No TTP Elbows Right Elbow: Full ROM. No swelling or TTP. No TTP of the medial and lateral epicondyles Left Elbow: Full ROM. No swelling or TTP. No TTP of the medial and lateral epicondyles Shoulders Right shoulder: Full ROM. No swelling noted. No TTP of the AC joint, subacromial bursa or posterior shoulder Left shoulder: Full ROM. No swelling noted. No TTP of the AC joint, subacromial bursa or posterior shoulder Hip bursa: No tenderness to palpation bilaterally Knees Right knee: Full ROM. No swelling noted. No TTP of the knee joint lie or pes anserine bursa Left knee: Full ROM. No swelling noted. No TTP of the knee joint lie or pes anserine bursa. Crepitations felt bilaterally Ankles Right ankle: Good ankle dorsiflexion and plantar flexion. No swelling. No TTP of the ankle joint Left ankle: Good ankle dorsiflexion and plantar flexion. No swelling. No TTP of the ankle joint Feet Right foot: Negative squeeze test. Bunion noted with valgus deformity Left foot: Negative squeeze test Tender points? No tenderness to palpation of the bilateral trapezius, supraspinatus, anterior costochondral junctions, bilateral suboccipital muscle insertions SKIN No rashes Vital Signs: Last Vital Signs Pulse 61 09/17/24 12:41 BP 130/78 09/17/24 12:41 Pulse Ox 100 09/17/24 12:41 Oxygen Delivery Method Room Air 09/17/24 12:41 BMI result Body Mass Index 20.6 Office Procedures AMB Joint Injection/Aspiration Joint Injection/Aspiration Details: Procedure was explained to the patient and informed consent was obtained. ? Risks associated with the procedure were discussed with the patient including but not limited to bleeding, infection, drug reactions and reactions to the topical anesthetic. Patient made aware of signs to look out for infectious complications. The area of interest was identified and confirmed with patient. ?This was subsequently cleaned with chlorhexidine x 2. ? The area was then anesthetized using ethyl chloride spray. 40 mg Kenalog with 1 cc 1% lidocaine was injected without issue. ?Minimal to no bleeding. ?Patient tolerated procedure. Primary Site: right shoulder Prep: site was prepped using aseptic technique and ethochloride spray was applied Injected: 40 mg of, Kenalog, with 1 mL of and 1% plain lidocaine Procedure: The patient tolerated the procedure well Coding 82714 - Glenohumeral/Tronchanteric Bursa/Intraarticular Procedure code (CPT) selection complete AMB Joint Injection/Aspiration Joint Injection/Aspiration Details: Procedure was explained to the patient and informed consent was obtained. ? Risks associated with the procedure were discussed with the patient including but not limited to bleeding, infection, drug reactions and reactions to the topical anesthetic. Patient made aware of signs to look out for infectious complications. The area of interest was identified and confirmed with patient. ?This was subsequently cleaned with chlorhexidine x 2. ? The area was then anesthetized using ethyl chloride spray. 40 mg Kenalog with 1 cc 1% lidocaine was injected without issue. ?Minimal to no bleeding. ?Patient tolerated procedure. Primary Site: left shoulder Prep: site was prepped using aseptic technique and ethochloride spray was applied Injected: 40 mg of, Kenalog, with 1 mL of and 1% plain lidocaine Procedure: The patient tolerated the procedure well Coding - Large joint 10718 - Glenohumeral/Tronchanteric Bursa/Intraarticular Procedure code (CPT) selection complete Office Meds lidocaine (PF) 10 mg/mL (1 %) injection solution Performing Provider: Lyn Mendez MD Performing Location: [facility] Administered by: Chetan Salamanca RN on 09/17/24 14:25 Dose Route Admin Location Dispensed Lot Number Expiration Date [facility] Manager Motor 1 mL Infiltration right shoulder 2 mL [id number] 07/12/26 70588-104-50 [employer] Total Dispensed Waste 2 mL 50 % Kenalog 40 mg/mL suspension for injection Performing Provider: Lyn Mendez MD Performing Location: [facility] Administered by: Chetan Salamanca RN on 09/17/24 14:25 Dose Route Admin Location Dispensed Lot Number Expiration Date [facility] Manager Motor 40 mg intra-articular right shoulder 1 mL [id number] 08/11/25 [address]-4 [place] [employer] Total Dispensed Waste 1 mL 0 % lidocaine (PF) 10 mg/mL (1 %) injection solution Performing Provider: Lyn Mendez MD Performing Location: [facility] Administered by: Chetan Salmaanca RN on 09/17/24 14:25 Dose Route Admin Location Dispensed Lot Number Expiration Date [place] Manager Motor 1 mL Infiltration left shoulder 2 mL [id number] 07/12/26 58614-280-57 [employer] Total Dispensed Waste 2 mL 50 % Kenalog 40 mg/mL suspension for injection Performing Provider: Lyn Mendez MD Performing Location: [facility] Administered by: Chetan Salamanca RN on 09/17/24 14:25 Dose Route Admin Location Dispensed Lot Number Expiration Date [facility] Manager Motor 40 mg intra-articular left shoulder 1 mL [id number] 06/11/25 [address]-2 [place] [employer] Total Dispensed Waste 1 mL 0 % Results Reviewed Results Reviewed: Laboratory Tests 03/19/24 10:56 WBC 4.9 RBC 4.28 L Hgb 13.3 L Hct 40.9 L Plt Count 183 ESR 5 Sodium 136 Potassium 5.1 Chloride 105 Carbon Dioxide 27 BUN 22 H AST 31 ALT 25 C-Reactive Protein < 0.10 Laboratory Tests 04/29/21 11:03 Rheumatoid Factor 35.7 H MATILDA Screen NEGATIVE XR Bilateral Hands/Wrists 09/2023 FINDINGS: RIGHT HAND/WRIST: Bony mineralization is normal. There is a neutral ulnar variance. There is moderate osteoarthritic change of the interphalangeal joint of the thumb. There is mild osteoarthritic change of the third and fourth proximal interphalangeal joints, and there is marked osteoarthritic change of the fifth distal interphalangeal joint, with lateral subluxation and peripheral osteophyte formation. There is moderately severe osteoarthritic change of the first through third metacarpophalangeal joints. There is marked osteoarthritic change of the first carpometacarpal joint. The proximal distal carpal rows are intact. There is narrowing of the radiocarpal interval. No fracture or dislocation is seen. There is no focal bone erosion. No foreign body is noted. LEFT HAND/WRIST: Bony mineralization is normal. There is a neutral ulnar variance. There is mild osteoarthritic change of the interphalangeal joint of the thumb. There is mild osteoarthritic change of the proximal and distal interphalangeal joints of the third finger, the proximal interphalangeal joint of the fourth finger and the proximal and distal interphalangeal joints of the fifth finger. There is mild medial subluxation at the fourth and fifth proximal interphalangeal joints. There is mild osteoarthritic change of the first through fourth metacarpophalangeal joints. There is marked osteoarthritic change of the first carpometacarpal and radiocarpal joints. The proximal and distal carpal rows are intact. No fracture or dislocation is seen. No focal erosion is noted. There is no focal soft tissue swelling, gas or foreign body. IMPRESSION: There are again multi-focal osteoarthritic changes of the bilateral hands and wrists. There are subluxations noted, as detailed. No bone erosion is seen. There is no fracture or dislocation. XR Right Foot 09/2023 FINDINGS: Bony alignment and mineralization are normal. The ankle mortise is intact. No fracture, dislocation or right ankle joint effusion is seen. Boehler's angle is normal. There are large posterior and small plantar calcaneal spurs. There are degenerative changes of the dorsal midfoot. There is an accessory ossification center of the navicular bone. There is moderate osteoarthritic change of the first metatarsophalangeal joint, with geode formation. A mild blunting is seen of the first metatarsal head. No abnormal bone erosion is noted. There is soft tissue swelling medial to the interphalangeal joint of the great toe. No foreign body is seen. IMPRESSION: 1. No fracture, dislocation or right ankle joint effusion is seen. 2. There are calcaneal spurs, as detailed. 3. There is moderate osteoarthritic change of the right first metatarsophalangeal joint. There is mild bunion formation. 4. There is no focal bone erosion. XR Left Foot 09/2023 FINDINGS: Bony mineralization is normal. The ankle mortise is intact. There is a metatarsus adductus and hallux valgus configuration. No fracture, dislocation or left ankle joint effusion is seen. As with the contralateral side, there is an accessory ossification center of the navicular. Boehler's angle is normal. There are small posterior and very small plantar calcaneal spurs. There is marked osteoarthritic change of the first metatarsophalangeal joint. There is mild bunion formation the first metatarsal head. No abnormal bone erosion is seen. There is no focal soft tissue swelling, gas or foreign body. IMPRESSION: 1. No fracture, dislocation or left ankle joint effusion is seen. 2. There is marked osteoarthritic change of the left first metatarsophalangeal joint, with bunion formation. 4. There are calcaneal spurs. 3. No focal bone erosion is noted. Assessment & Plan Assessment & Plan (1) Seropositive rheumatoid arthritis: Comment: +RF dx 09/2023 Code(s): M05.9 - Rheumatoid arthritis with rheumatoid factor, unspecified Category: Medical Plan: #Seropositive RA Patient is a 74-year-old male with seropositive rheumatoid arthritis here today for follow up. He did not notice any improvement on the hydroxychloroquine however his symptomatology is confounded by concomitant osteoarthritis. I discussed with the patient that we should do a proper trial of the hydroxychloroquine for the next 4 months and then follow up. Plan - Hydroxychloroquine 300mg daily - RTC 4 months - Labs before visit: CBC, CMP, ESR, CRP (2) Tendonitis of both rotator cuffs: Code(s): M75.81 - Other shoulder lesions, right shoulder; M75.82 - Other shoulder lesions, left shoulder Category: Medical Plan: #Bilateral shoulder tendonitis Patient with bilateral tendonitis status post steroid injection today (3) Long-term use of hydroxychloroquine: Code(s): Z79.899 - Other inspector production plastic parts (current) drug therapy Category: Medical Plan: #Long-term Use of Hydroxychloroquine Discussed with patient the risks and benefits of hydroxychloroquine in managing the rheumatic condition Benefits include: - Reduced pain, reduce mortality, maintenance of remission and reduction of flares Risks include: - GI upset, skin hyperpigmentation, retinal toxicity (especially after more than 5 years of use), myopathy Advised yearly ophthalmology visits Plan I spent 30 minutes reviewing the record and labs, taking a history, examining the patient, discussing the treatment plan, ordering diagnostic work up and documenting in the medical record Orders: Orders AMB Joint Injection/Aspiration Today M05.9 - Rheumatoid arthritis with rheumatoid factor, unspecified Complete Blood Count Auto Diff 4 Months Z79.899 - Other custodial (current) drug therapy Comprehensive Met. Panel 4 Months Z79.899 - Other inspector production plastic parts (current) drug therapy AMB Joint Injection/Aspiration Today M05.9 - Rheumatoid arthritis with rheumatoid factor, unspecified C Reactive Protein 4 Months Z79.899 - Other inspector production plastic parts (current) drug therapy Erythrocyte Sedimentation Rate 4 Months Z79.899 - Other inspector production plastic parts (current) drug therapy Medications: Refilled hydroxychloroquine 300 mg (1.5 x 200 mg) PO DAILY 135 tabs 1RF M05.9 - Rheumatoid arthritis with rheumatoid factor, unspecified Coding Level of Care Code Est Pt Level 4 (91883) Complex EM visit Add On G2211 Diagnoses Seropositive rheumatoid arthritis M05.9 Tendonitis of both rotator cuffs M75.81; M75.82 Long-term use of hydroxychloroquine Z79.899 CPT Codes Coding - Joint 7: 77336 - Glenohumeral/Tronchanteric Bursa/Intraarticular ([id number]) Coding - 44562 Large joint: 42103 - Large joint ([id number]) Coding - Joint 7: 07367 - Glenohumeral/Tronchanteric Bursa/Intraarticular ([id number])
[2024-09-17 12:41] VITALS: BP 130/78; PULSE 61; O2SAT 100; BMI 20.6
== END 2024-09-17 13:34 | disposition home or self-care (01) ==
LOC: HO.RHES 12:07
PROVIDERS: PCP Internal Medicine; Visit Provider Student in an Organized Health Care Education/Training Program
DX: M05.79 Rheumatoid arthritis with rheumatoid factor of multiple sites without organ or systems involvement (principal); M75.81 Other shoulder lesions, right shoulder; M75.82 Other shoulder lesions, left shoulder; Z79.899 Other long term (current) drug therapy
CPT/HCPCS: 20610; 99214

== ENCOUNTER → 2024-09-17 12:06 | Outpatient (BNVA) | payer MEDICARE, SELFPAY | PROVIDERS: PCP Internal Medicine; Visit Provider Student in an Organized Health Care Education/Training Program | DX: M75.81 Other shoulder lesions, right shoulder (principal); M75.82 Other shoulder lesions, left shoulder; M05.9 Rheumatoid arthritis with rheumatoid factor, unspecified; Z79.899 Other long term (current) drug therapy | CPT/HCPCS: 20610; 99212; J2003; J3300 ==

== ENCOUNTER 2024-09-18 09:50 | Outpatient (AMB) | payer MEDICARE, SELFPAY ==
--- NOTE | 2024-09-18 09:57 | A.OFFPC_ITS ---
Vital Signs 09/18/24 09:58 Height 5 ft 4.57 in Weight 131 lb 2 oz BMI 22.1 BP 122/70 Blood Pressure Location Lt brachial Position Sitting Pulse 57 Pulse Source Pulse Oximeter Temp 97.3 F Temp Source Temporal Artery Scan Pulse Oximetry (%) 97 Oxygen Delivery Method Room Air Intake Visit Reasons: 6 Month F/U Intake Note: Patient is here to follow up on OA, Hypercholesterolemia. Nursing Aide Required: No Resin Coater: Not Required per policy Accompanied by: Self / Same As Patient Allergies No Known Allergies (No Known Allergies*) Allergy (Verified 09/18/24 09:58) Tobacco use date assessed: 09/18/24 Fall risk assessment: No Falls in past year Last assessed Fall Risk: 09/18/24 Dental Screening Dental Screen Date: 03/19/24 [facility] Medical History Tendonitis of both rotator cuffs Shooting pain Osteoarthritis of hands, bilateral Left shoulder strain Hypercholesterolemia Surgical History History of brain surgery History of hernia repair Family History Mother No problems noted. Father No problems noted. Social History Housing: House Alcohol intake: current Alcohol intake frequency: does not drink Patient Tobacco Use Status: Never used Tobacco e-Cigarette/Vaping Use: Never Used Second Hand Smoke Exposure: No service: No Current occupational status: employed and retired Cognitive needs: No Hearing needs: No Vision needs: No Questionnaire PHQ-9 Over the last 2 weeks, how often have you been bothered by any of the following problems? 1. Little interest or pleasure in doing things: not at all 2. Feeling down, depressed, or hopeless: not at all 3. Trouble falling or staying asleep, or sleeping too much: not at all 4. Feeling tired or having little energy: not at all 5. Poor appetite or overeating: not at all 6. Feeling bad about yourself - or that you are a failure or have let yourself or your family down: not at all 7. Trouble concentrating on things, such as reading the newspaper or watching television: not at all 8. Moving or speaking so slowly that other people could have noticed. Or the opposite - being so fidgety or restless that you have been moving around a lot more than usual: not at all 9. Thoughts that you would be better off or of hurting yourself in some way: not at all Total score: 0 Depression Screening Interpretation: Negative Depression Screening Done: Yes Source: Developed by Drs. Carlos Doty, Shweta Arechiga, Mario Hernandez and colleagues, with an educational claribel from [employer]. Thrive Questionnaire Date Thrive assessed: 03/19/24 I am a: Patient What is your living situation today?: I have a steady place to live Within the past 12 months, did the food you bought not last and you didn't have the money to get more?: Never true Within the past 12 months, did you worry whether your food would run out before you got money to buy more?: Never true Do you have trouble paying for medicines?: No Do you have trouble getting transportation to medical appointments?: No Do you have trouble paying your heating and electricity bill?: No Do you have trouble taking care of your child, family member or friend?: No Do you have trouble with day-to-day activities such as bathing, preparing meals, shopping, managing finances, etc.?: No Are you currently unemployed and looking for a job?: No Are you interested in more education?: No Please select the resources that you would like help with: None Currently or been in a relationship where the following occur: No concerns reported THRIVE Score: 0 AUDIT C Alcohol Use Questionnaire (AUDIT-C) 1. How often do you have a drink containing alcohol?: 2-4 times a month Total Score: 2 ALYCE-7 AMB Questionnaire ALYCE-7 Date ALYCE - 7 assessed: 03/19/24 Feeling nervous, anxious, or on edge: 0 = Not at all Not being able to stop or control worryin = Not at all Worrying too much about different things: 0 = Not at all Trouble relaxin = Not at all Being so restless that it is hard to sit still: 0 = Not at all Becoming easily annoyed or irritable: 0 = Not at all Feeling afraid as if something awful might happen: 0 = Not at all Total ALYCE-7 score (0-4 normal; 5-9 mild; 10-14 moderate; 15-21 severe): 0 Source: Developed by Drs. Carlos Doty, Shweta Arechiga, Mario Hernandez and colleagues, with an educational claribel from [employer]. Physical exam (Primary Care) Vital Signs: Last Vital Signs Temp 97.3 F 09/18/24 09:58 Pulse 57 09/18/24 09:58 BP 122/70 09/18/24 09:58 Pulse Ox 97 09/18/24 09:58 Oxygen Delivery Method Room Air 09/18/24 09:58 BMI result Body Mass Index 22.1 Tobacco/Smoking Status: Tobacco use Status Tobacco use date assessed 09/18/24 09/18/24 10:02 Patient Tobacco Use Status Never used Tobacco 09/18/24 10:02 e-Cigarette/Vaping Use Never Used 09/18/24 10:02 PHQ-9: PHQ-9 Score PHQ-9: Total score 0 09/18/24 10:02 Depression Screening Interpretation: Negative Thrive Assessment: Date of Thrive Assessment Date Thrive assessed 03/19/24 09/18/24 10:02 Currently or been in a relationship where the following occur: No concerns reported Coding Level of Care Code Est Pt Level 4 (82765) Complex EM visit Add On G2211 Diagnoses Seropositive rheumatoid arthritis M05.9 Assessment & Plan Assessment & Plan (1) Seropositive rheumatoid arthritis: Comment: +RF dx 09/2023 Code(s): M05.9 - Rheumatoid arthritis with rheumatoid factor, unspecified Category: Medical Plan: Saw the senior net developer architect and was restarted on hydroxychloroquine. Recvd steroid injections. Plan History of Present Illness - The patient is a 74-year-old male presenting for follow-up on rheumatoid arthritis and osteoarthritis management. - Rheumatoid arthritis was diagnosed during a previous visit, and the patient was referred to a senior net developer architect for further evaluation. - The patient reports receiving two injections in the shoulders from the senior net developer architect, which have slightly alleviated shoulder pain. - The patient is restarting hydroxychloroquine, although he previously did not notice significant improvement with this medication. - The patient experiences persistent hand pain, which is managed by using padded gloves when lifting objects. 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 - Osteoarthritis was also diagnosed by the senior net developer architect, contributing to the patient's joint pain. 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 Review of Systems - Musculoskeletal: Reports shoulder pain with slight improvement post-injection, persistent hand pain managed with padded gloves. Denies difficulty with lifting or performing daily activities. - General: Denies any new physical issues or pain. - Neurological: Denies any issues with driving or using utensils. Physical Exam General: Cooperative and healthy appearing Nutritional Appearance: Well nourished Orientation/consciousness: Patient oriented x3 Limitations: No limitations Head: Normal to inspection General: Appearance normal, both eyes and all related structures Neck: Normal visual inspection Chest: Normal palpation of entire chest wall Respiratory: N ormal respiratory effort Neurology: Patient oriented x3, no issues with physical activities, able to drive and eat without problems. Results Plan 1. Rheumatoid Arthritis - Continue hydroxychloroquine as prescribed by the senior net developer architect. - Follow-up with the senior net developer architect in four months to assess treatment efficacy and adjust management as needed. 2. Osteoarthritis - Monitor response to shoulder injections and assess pain relief. - Continue using padded gloves to manage hand pain during activities. Discussion Notes During the visit, we discussed the management of rheumatoid arthritis and osteoarthritis. The patient is to continue hydroxychloroquine and follow up with the senior net developer architect in four months. We also reviewed the use of shoulder injections and padded gloves for pain management. Patient Instructions - Continue taking hydroxychloroquine as prescribed. - Use padded gloves when lifting heavy objects to reduce hand pain. - Follow up with the senior net developer architect in four months.
[2024-09-18 09:58] VITALS: BP 122/70; PULSE 57; TEMP 36.3; O2SAT 97; BMI 22.1
--- OUTSIDE RECORDS SUMMARY | 2024-09-18 10:21 | XMS_ITS | Clinical Summary ---
Author Organization [facility] Address [address] [place] [address] Care Team Providers Care Pricing Consultant Name Role Phone Pcp, No Primary Care Provider [phone] Allergies No known active allergies Medications No [...] 72 09/04/2022 3:42 PM EDT Temperature 37 C (98.6 F) 09/04/2022 3:42 PM EDT Respiratory Rate 16 [...] Adults 18 yrs or above (or HM Modifier)([facility]) 1967 Hepatitis C Virus Infection in Adolescents and Adults: Screening (or Modifier) ([facility]) 1967 SDIL Screening Reminder: Elisha staley for all adults ([facility]) 1967 Tobacco Smoking Cessation: i n Adults excluding Women: Behavioral and Pharmacotherapy Interventions ([facility]) 1967 DTaP/Tdap/Td Vaccines ([facility]) (1 - Tdap) 01/20/1968 Colorectal Cancer Screening 45 -75 Yrs (or HM Modifier ) 1994 Colorectal Cancer: FLEXIBLE SIGMOIDOSCOPY Screening every 5 yrs 1994 Colorectal Cancer: Fecal Imm unochemical Test (FIT) Annually [facility] 1994 Colorectal Cancer: High-sens itivity gFOBT Screening Annually [facility] 1994 Colorectal Cancer: Stool Col oguard Screening every 3 yrs 1994 Colorectal Cancer:CT Colonography Screening every 5 yr s 1994 Pneumococcal Vaccination Scr eening: Patients 50+ yrs of age ([facility]) (1 of 1 - PCV) 1999 Zoster/Shingles Vaccine Seri es Screening: Adults aged 18+ yrs (or HM Modifiers)([facility]) (1 of 2) 1999 COVID-19 Vaccine Screening: Initial Series and Booster Status ([facility]) ( - 2023-25 season) 2023 RSV Vaccines (1 - 1-dose 75+ series) 01/20/2024 Flu Vaccination: Ages 65+: Y early High Dose Recommended (or Modifier)([facility]) 09/12/2024 Medical Devices Not on file Insurance MEDICARE Care Teams Pricing Consultant Relationship Specialty Start Date End Date Pcp, Pam PCP - General Family Medicine 09/04/22
== END 2024-09-18 10:20 | disposition home or self-care (01) ==
LOC: HO.HMCH 09:51
PROVIDERS: PCP Internal Medicine; Visit Provider Internal Medicine
DX: M05.9 Rheumatoid arthritis with rheumatoid factor, unspecified (principal)

== ENCOUNTER → 2024-09-18 09:50 | Outpatient (BNVA) | payer MEDICARE, SELFPAY | PROVIDERS: PCP Internal Medicine; Visit Provider Internal Medicine | DX: M19.042 Primary osteoarthritis, left hand (principal); M19.041 Primary osteoarthritis, right hand; M05.9 Rheumatoid arthritis with rheumatoid factor, unspecified; E78.00 Pure hypercholesterolemia, unspecified | CPT/HCPCS: 96127; 99212 ==

== ENCOUNTER 2024-12-24 14:28 | Outpatient (AMB) | payer MEDICARE, SELFPAY ==
--- NOTE | 2024-12-24 14:33 | A.OFFVIS_ITS ---
Vital Signs 12/24/24 14:38 Height 5 ft 4.57 in Weight 131 lb 6.328 oz BMI 22.2 BP 134/80 Blood Pressure Location Lt brachial Position Sitting Pulse 65 Pulse Source Pulse Oximeter Pulse Oximetry (%) 96 Oxygen Delivery Method Room Air Intake Visit Reasons: shoulder injection Intake Note: Patient presents for shoulder injection follow up. 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 He was last seen by Dr. Avalos about 2 years ago. States that since then he has been taking meloxicam 15 mg daily in the morning. States that he continues to have pain and stiffness of his hands, knees, shoulders. Morning stiffness lasts 1 hour, gets intermittent swelling of his knuckles. 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 He has noticed some deformity of his thumbs, they are moving inside his hand. He is certain that patient's mother had rheumatoid arthritis Most recent history by Dr. Avalos 2021: The patient presents for evaluation of shoulder pain, wrist pain and a positive rheumatoid factor. For few years he has been having some aching in the wrists, usually after heavier physical activity. He had a fall on the right shoulder in early 2020. This was treated with some meloxicam and did improve for a while but then worsened again this fall. He also developed left shoulder pain this fall. The left shoulder now hurts more than the right. Symptoms are worse with lying on the shoulders at night. He notes decreased range of motion in the left shoulder. 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 He also runs a [employer] part-time. Current Rheumatology Medication(s): Hydroxychloroquine 300mg daily [facility] Medical History Tendonitis of both rotator cuffs Shooting pain Osteoarthritis of hands, bilateral Left shoulder strain Hypercholesterolemia Surgical History History of brain surgery History of hernia repair Family History Mother No problems noted. Father No problems noted. Social History Housing: House Alcohol intake: current Alcohol intake frequency: does not drink Patient Tobacco Use Status: Never used Tobacco e-Cigarette/Vaping Use: Never Used Second Hand Smoke Exposure: No service: No Current occupational status: employed and retired Cognitive needs: No Hearing needs: No Vision needs: No Review of Systems Narrative Review of Systems Constitutional: Denies fever, chills, weight loss ENT: Denies vision changes, eye pain or eye redness, dental caries, dry mouth GI: Denies nausea, vomiting, diarrhea, abdominal pain, change in BM Pulm: Denies SOB, KHAN, hemoptysis, wheezing Cards: Denies chest pain, palpitations Skin: Denies Raynaud's, rash, nail changes, photosensitivity, SOLE CONDITIONER: Denies headaches, weakness, paresthesias, recurrent falls MSK: as per HPI All other systems reviewed and are unremarkable except noted above Physical Exam Exam Exam: Vital signs reviewed Physical Examination CONSTITUITIONAL Patient alert and cooperative. Well appearing and in no apparent painful distress MSK Hands * Right Hand: Able to make a fist. No swelling or tenderness to palpation of the MCPs, PIPs or DIPs. * Left Hand: Able to make a fist. No swelling or tenderness to palpation of the MCPs, PIPs or DIPs. * Herbedens nodes noted bilaterally with flexion deformities Wrists * Right Wrist: Decreased ROM. No swelling or TTP * Left Wrist: Decreased ROM. No swelling or TTP Elbows * Right Elbow: No swelling or TTP. No TTP of the medial epicondyle. No TTP of the lateral epicondyle * Left Elbow: No swelling or TTP. No TTP of the medial epicondyle. No TTP of the lateral epicondyle Shoulders * Right shoulder: Decreased ROM to abduction. No swelling noted. No TTP of the AC joint. No TTP of the subacromial bursa. No TTP of the posterior shoulder * Left shoulder: Decreased ROM to abduction. No swelling noted. No TTP of the AC joint. No TTP of the subacromial bursa. No TTP of the posterior shoulder Knees * Right knee: No swelling noted. No TTP of the knee joint line. No TTP of pes anserine bursa * Left knee: No swelling noted. No TTP of the knee joint line. No TTP of pes anserine bursa. * Crepitations felt bilaterally Ankles * Right ankle: Good ankle dorsiflexion and plantar flexion. No swelling. No TTP of the ankle joint * Left ankle: Good ankle dorsiflexion and plantar flexion. No swelling. No TTP of the ankle joint Feet * Right foot: Negative squeeze test * Left foot: Negative squeeze test Tender points? * No tenderness to palpation of the bilateral trapezius, supraspinatus, anterior costochondral junctions, bilateral suboccipital muscle insertions SKIN No rashes Vital Signs: Last Vital Signs Pulse 65 12/24/24 14:38 BP 134/80 12/24/24 14:38 Pulse Ox 96 12/24/24 14:38 Oxygen Delivery Method Room Air 12/24/24 14:38 BMI result Body Mass Index 22.2 Office Procedures AMB Joint Injection/Aspiration Joint Injection/Aspiration Details: Procedure was explained to the patient and informed consent was obtained. ? Risks associated with the procedure were discussed with the patient including but not limited to bleeding, infection, drug reactions and reactions to the topical anesthetic. Patient made aware of signs to look out for infectious complications. The area of interest was identified and confirmed with patient. ?This was subsequently cleaned with chlorhexidine x 2. ? The area was then anesthetized using ethyl chloride spray. 40 mg Kenalog with 1 cc 1% lidocaine was injected without issue. ?Minimal to no bleeding. ?Patient tolerated procedure. Primary Site: Right Shoulder (subacromial bursa) Prep: site was prepped using aseptic technique and ethochloride spray was applied Injected: 40 mg of, Kenalog, with 1 mL of and in the subcromial space Procedure: The patient tolerated the procedure well Coding 16149 - Glenohumeral/Tronchanteric Bursa/Intraarticular Procedure code (CPT) selection complete AMB Joint Injection/Aspiration Joint Injection/Aspiration Details: Procedure was explained to the patient and informed consent was obtained. ? Risks associated with the procedure were discussed with the patient including but not limited to bleeding, infection, drug reactions and reactions to the topical anesthetic. Patient made aware of signs to look out for infectious complications. The area of interest was identified and confirmed with patient. ?This was subsequently cleaned with chlorhexidine x 2. ? The area was then anesthetized using ethyl chloride spray. 40 mg Kenalog with 1 cc 1% lidocaine was injected without issue. ?Minimal to no bleeding. ?Patient tolerated procedure. Primary Site: Left Shoulder (subacromial bursa) Prep: site was prepped using aseptic technique and ethochloride spray was applied Injected: 40 mg of, Kenalog, with 1 mL of, 1% plain Lidocaine and in the subcromial space Procedure: The patient tolerated the procedure well Coding 89348 - Glenohumeral/Tronchanteric Bursa/Intraarticular Procedure code (CPT) selection complete Office Meds lidocaine (PF) 10 mg/mL (1 %) injection solution Performing Provider: Lyn Mendez MD Performing Location[place] [facility] Administered by: Lyn Mendez MD on 12/24/24 15:18 Dose Route Admin Location Dispensed Lot Number Expiration Date [facility] [employer] 1 mL Infiltration right subacromial bursa 2 mL [id number] 07/12/26 [phone] [facility] [employer] Total Dispensed Waste 2 mL 50 % Kenalog 40 mg/mL suspension for injection Performing Provider: Lyn Mendez MD Performing Location: [facility] Administered by: Lyn Mendez MD on 12/24/24 15:18 Dose Route Admin Location Dispensed Lot Number Expiration Date [facility] [employer] 40 mg intra-articular right subacromial bursa 1 mL [id number] 08/11/26 [address]-3 [employer] Total Dispensed Waste 1 mL 0 % lidocaine (PF) 10 mg/mL (1 %) injection solution Performing Provider: Lyn Mendez MD Performing Location: [facility] Administered by: Lyn Mendez MD on 12/24/24 15:18 Dose Route Admin Location Dispensed Lot Number Expiration Date [place] [employer] 1 mL Infiltration left subacromial bursa 2 mL [id number] 07/12/26 [phone] [email or web address] Total Dispensed Waste 2 mL 50 % Kenalog 40 mg/mL suspension for injection Performing Provider: Lyn Mendez MD Performing [facility] Administered by: Lyn Mendez MD on 12/24/24 15:18 Dose Route Admin Location Dispensed Lot Number Expiration Date [facility] [employer] 40 mg intra-articular left subacromial bursa 1 mL [id number] 08/11/26 [address]-0 [employer] Total Dispensed Waste 1 mL 0 % Results Reviewed Results Reviewed: Laboratory Tests 03/19/24 10:56 WBC 4.9 RBC 4.28 L Hgb 13.3 L Hct 40.9 L Plt Count 183 ESR 5 Sodium 136 Potassium 5.1 Chloride 105 Carbon Dioxide 27 BUN 22 H Creatinine 0.98 AST 31 ALT 25 C-Reactive Protein < 0.10 XR Bilateral Shoulders 04/2021 FINDINGS (right): Bone alignment is normal. No acute fracture or dislocation is seen. There is arthritis at the acromioclavicular joint. There is a well-corticated soft tissue ossification superior to the distal clavicle that is unchanged. The glenohumeral joint is normal. Soft tissues are normal. IMPRESSION: Arthritis at the acromioclavicular joint. FINDINGS (Left): There is no fracture, dislocation, destructive process. The acromioclavicular alignment is normal. There is small spur superior aspect greater tuberosity perhaps with punctate calcification distal rotator cuff. There is some punctate mineralization at the inferior glenoid rim. Mild spurring is present inferolateral acromium and distal inferior clavicle. There are degenerative changes acromioclavicular joint. No destructive process. IMPRESSION: 1. No fracture or dislocation. Acromioclavicular alignment normal. 2. Degenerative changes acromioclavicular joint. Assessment & Plan Assessment & Plan (1) Seropositive rheumatoid arthritis: Comment: +RF dx 09/2023 Code(s): M05.9 - Rheumatoid arthritis with rheumatoid factor, unspecified Category: Medical Plan: #Seropositive RA Patient is a 74-year-old male with seropositive rheumatoid arthritis here today for follow up. He did not notice any improvement on the hydroxychloroquine No active synovitis on exam today Plan - stop hydroxychloroquine and re-evaluate effectiveness - RTC 4 months - Labs before visit: CBC, CMP, ESR, CRP (2) Tendonitis of both rotator cuffs: Comment: Bilateral shoulder injections 09/17/2024; 12/24/2024 Code(s): M75.81 - Other shoulder lesions, right shoulder; M75.82 - Other shoulder lesions, left shoulder Category: Medical Plan: #Bilateral shoulder tendonitis Patient with bilateral tendonitis status post steroid injection today Plan I spent 25 minutes reviewing the record and labs, taking a history, examining the patient, discussing the treatment plan, ordering diagnostic work up and documenting in the medical record Orders: Orders AMB Joint Injection/Aspiration Today M19.019 - Primary osteoarthritis, unspecified shoulder AMB Joint Injection/Aspiration Today M19.019 - Primary osteoarthritis, unspecified shoulder Coding Level of Care Code Est Pt Level 3 (68133) Complex EM visit Add On G2211 Diagnoses Seropositive rheumatoid arthritis M05.9 Tendonitis of both rotator cuffs M75.81; M75.82 CPT Codes Coding - Joint 7: 54245 - Glenohumeral/Tronchanteric Bursa/Intraarticular ([id number]) Coding - Joint 7: 87372 - Glenohumeral/Tronchanteric Bursa/Intraarticular ([id number])
[2024-12-24 14:38] VITALS: BP 134/80; PULSE 65; O2SAT 96; BMI 22.2
--- OUTSIDE RECORDS SUMMARY | 2024-12-24 17:59 | XMS_ITS | Clinical Summary ---
Author Organization [facility] Address [address] [place] [address] Care Team Providers Care Testing Consultant Name Role Phone Pcp, No Primary Care Provider [phone] Allergies No known active allergies Medications No [...] Mass Index - - Plan of Treatment Not on file Medical Devices Not on file Insurance MEDICARE Care Teams Testing Consultant Relationship Specialty Start Date End Date Pcp, No PCP - General Family Medicine 09/04/22
== END 2024-12-24 17:08 | disposition home or self-care (01) ==
LOC: HO.RHES 14:30
PROVIDERS: PCP Internal Medicine; Visit Provider Student in an Organized Health Care Education/Training Program
DX: M05.79 Rheumatoid arthritis with rheumatoid factor of multiple sites without organ or systems involvement (principal); M19.011 Primary osteoarthritis, right shoulder; M19.012 Primary osteoarthritis, left shoulder; M75.81 Other shoulder lesions, right shoulder; M75.82 Other shoulder lesions, left shoulder
CPT/HCPCS: 20610; 99213

== ENCOUNTER → 2024-12-24 14:28 | Outpatient (BNVA) | payer MEDICARE, SELFPAY | PROVIDERS: PCP Internal Medicine; Visit Provider Student in an Organized Health Care Education/Training Program | DX: M05.9 Rheumatoid arthritis with rheumatoid factor, unspecified (principal); M75.81 Other shoulder lesions, right shoulder; M75.82 Other shoulder lesions, left shoulder; M19.011 Primary osteoarthritis, right shoulder; M19.012 Primary osteoarthritis, left shoulder | CPT/HCPCS: 20610; 99212; J2003; J3301 ==